=== PATIENT | female | born 1975 | race Caucasian/White ===

== ENCOUNTER 2018-12-17 07:09 | Inpatient (IN) | payer BC ==
[2018-12-17] MEDS ORDERED: Propofol 200 MG/20 ML SDV ONE ×2 (08:36→10:03)
[2018-12-17] MEDS ORDERED: Midazolam 1 MG/ML 2 ML SDV ONE (08:36)
[2018-12-17] MEDS ORDERED: fentaNYL 100 MCG/2 ML SDV ONE (08:36)
[2018-12-17] MEDS ORDERED: MVI, Adult with Vitamin K 10 ML, Thiamine 200 MG, Chromium/Copper/Mang/Selen/Zn 1 ML in... IV ONE ×4 (08:45)
[2018-12-17] MEDS ORDERED: Glycopyrrolate 0.2 MG/ML 2 ML SDV IVPUSH ONE (09:00)
[2018-12-17] MEDS ORDERED: Dextrose 5%-Lactated Ringers 1,000 ML IV SCH ×2 (10:15→14:00)
[2018-12-17] MEDS ORDERED: Zolpidem 5 MG Tab PO PRN (11:22)
[2018-12-17] MEDS ORDERED: SUMAtriptan 50 MG Tab PO PRN (12:18)
[2018-12-17] MEDS ORDERED: Gabapentin 300 MG Cap PO PRN (12:56)
[2018-12-17] MEDS ORDERED: Gabapentin 300 MG Cap PO SCH (14:00)
[2018-12-17] MEDS: Levothyroxine 100 MCG Tab PO SCH (15:02)
[2018-12-17] MEDS: 1: AA 5%/Calcium/D15W/Lytes 1,000 ML with MVI, Adult with Vitamin K 10 ML, Chromium/Copp IV SCH ×3 (15:02)
[2018-12-17] MEDS: Verapamil 80 MG Tab PO SCH ×2 (15:02→21:59)
[2018-12-17] MEDS ORDERED: Pantoprazole 40 MG Tab.CR PO ONE (16:00)
[2018-12-17] MEDS ORDERED: Zonisamide 100 MG Cap PO SCH (21:00)
[2018-12-17] MEDS ORDERED: Zonisamide 50 MG Capsule PO SCH (21:00)
[2018-12-18] MEDS: 1: AA 5%/Calcium/D15W/Lytes 1,000 ML with MVI, Adult with Vitamin K 10 ML, Chromium/Copp IV SCH ×6 (05:39→16:18)
[2018-12-18] MEDS ORDERED: Celecoxib 200 MG Cap PO ONE (06:30)
[2018-12-18] MEDS ORDERED: Verapamil 80 MG Tab PO ONE (06:30)
[2018-12-18] MEDS ORDERED: Acetaminophen 500 MG Tab PO ONE (06:30)
[2018-12-18] MEDS ORDERED: Gabapentin 300 MG Cap PO ONE (06:30)
[2018-12-18] MEDS ORDERED: fentaNYL 250 MCG/5 ML SDV ONE ×3 (07:53→12:33)
[2018-12-18] MEDS ORDERED: Dexamethasone 4 MG/ML SDV ONE (07:54)
[2018-12-18] MEDS ORDERED: Glycopyrrolate 0.2 MG/ML 5 ML MDV ONE (07:54)
[2018-12-18] MEDS ORDERED: Rocuronium 50 MG/5 ML Vial ONE (07:54)
[2018-12-18] MEDS ORDERED: Ondansetron 4 MG/2 ML SDV ONE (07:54)
[2018-12-18] MEDS ORDERED: Succinylcholine 200 MG/10 ML MDV ONE (07:54)
[2018-12-18] MEDS ORDERED: Neostigmine Methylsulfate 1 MG/ML 5 ML Syringe ONE (07:54)
[2018-12-18] MEDS ORDERED: Propofol 200 MG/20 ML SDV ONE (07:54)
[2018-12-18] MEDS ORDERED: Ropivacaine 38 ML, dexAMETHasone 8 MG, EPINEPHrine 0.4 MG, Sodium Chloride 0.9% 39.6 ML NERVRT SCH ×4 (08:30)
[2018-12-18] MEDS ORDERED: Lidocaine 2% 100 MG/5 ML Syringe IVPUSH SCH (08:45)
[2018-12-18] MEDS ORDERED: Ketamine 500 MG/5 ML MDV IV SCH (08:45)
[2018-12-18] MEDS ORDERED: Ketamine 50 MG in Sodium Chloride 0.9% 49.5 ML IV SCH (08:45)
--- NOTE | 2018-12-18 09:34 | PCM.PN ---
- General Info Date of Service: 12/18/18 Admission Dx/Problem (Free Text): Elaine Wheeler is a 43 year old female who was admitted on 12/18/2018 after the upper gastrointestinal endoscopy and triple lumen subclavian catheter insertion. 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 She states that her pain is controlled and she is ready for her procedure today. Functional Status: Reports: Pain Controlled - Review of Systems General: Reports: No Symptoms HEENT: Reports: No Symptoms Pulmonary: Reports: No Symptoms Cardiovascular: Reports: No Symptoms Genitourinary: Reports: No Symptoms Musculoskeletal: Reports: No Symptoms Skin: Reports: No Symptoms Neurological: Reports: No Symptoms Psychiatric: Reports: No Symptoms - Patient Data Vitals - Most Recent: Last Vital Signs Temp 36.2 C 12/18/18 07:37 Pulse 92 12/18/18 07:37 Resp 16 12/18/18 07:37 BP 128/74 12/18/18 07:37 Pulse Ox 100 12/18/18 07:37 Weight - Most Recent: 86.636 kg I&O - Last 24 Hours: Intake & Output 12/17/18 12/18/18 12/18/18 22:59 06:59 14:59 Intake Total 1342 1238 Output Total 1375 500 900 Balance -33 738 -900 Lab Results Last 24 Hours: Laboratory Results - last 24 hr 12/17/18 12/17/18 Range/Units 12:21 12:21 TSH, Ultra Sensitive 0.939 (0.358-3.740) uIU/mL Blood Type A POSITIVE Gel Antibody Screen Negative Med Orders - Current: Current Medications Ropivacaine 38 ml/Dexamethasone 8 mg/Epinephrine HCl 0.4 mg/ Sodium Chloride 39.6 ml 0 ml NERVRT ASDIRECTED [facility] Gabapentin (Neurontin) 300 mg PO TID PRN PRN Reason: HEADACHE Dextrose/Lactated Ringer's (Dextrose 5%-Lactated Ringers) 1,000 mls @ 25 mls/ hr IV ASDIRECTED [facility] Last Admin: 12/18/18 05:41 Dose: 25 mls/hr Multivitamins/Minerals 10 ml/Chromium/Copper/Manganese/Seleni/Zn 1 ml/ Amino Ac/ Electrol/Dextrose/Calcium 1,011 mls @ 100 mls/hr IV .BY DURATION [facility] Last Admin: 12/17/18 15:02 Dose: 100 mls/hr Amino Ac/Electrol/Dextrose/Calcium (Clinimix E 12/26) 1,000 mls @ 100 mls/hr IV .BY DURATION [facility] Last Admin: 12/18/18 05:39 Dose: 100 mls/hr Lidocaine HCl/Dextrose (Lidocaine 2 Gm/D5w 500 Ml) 2 gm in 500 mls @ 15 mls/hr IV .Q24H [facility] Ketamine HCl 50 mg/ Sodium (Chloride) 50 mls @ 15.72 mls/hr IV ASDIRECTED [facility] Ketamine HCl (Ketalar) 26 mg IV ASDIRECTED [facility] Levothyroxine Sodium (Synthroid) 100 mcg PO ACBREAKFAST [facility] Last Admin: 12/17/18 15:02 Dose: 100 mcg Lidocaine HCl (Xylocaine 2%) 100 mg IVPUSH ASDIRECTED [facility] Verify Scop Patch 0 each TOP DAILY [facility] Pneumococcal Polyvalent Vaccine (Pneumovax 23) 0.5 ml IM .ONCE ONE Stop: 12/20/18 14:01 Scopolamine (Transderm-Scop) 1.5 mg TRDERM Q72H [facility] Sumatriptan Succinate (Imitrex) 50 mg PO ASDIRECTED PRN PRN Reason: HEADACHE Zolpidem Tartrate (Ambien) 10 mg PO BEDTIME PRN PRN Reason: SLEEP Last Admin: 12/17/18 22:00 Dose: 10 mg Zonisamide (Zonisamide) 200 mg PO BEDTIME [facility] Discontinued Medications Acetaminophen (Tylenol Extra Strength) 1,000 mg PO ONETIME ONE Stop: 12/18/18 06:31 Last Admin: 12/18/18 05:39 Dose: 1,000 mg Bupropion HCl (Wellbutrin) 150 mg PO BID [facility] Stop: 12/17/18 21:01 Last Admin: 12/17/18 21:59 Dose: 150 mg Bupropion HCl (Wellbutrin) 150 mg PO ONETIME ONE Stop: 12/18/18 06:31 Last Admin: 12/18/18 05:39 Dose: 150 mg Celecoxib (Celebrex) 200 mg PO ONETIME ONE Stop: 12/18/18 06:31 Last Admin: 12/18/18 05:39 Dose: 200 mg Dexamethasone (Dexamethasone) Confirm Administered Dose 4 mg .ROUTE .STK-MED ONE Stop: 12/18/18 07:55 Fentanyl (Sublimaze) Confirm Administered Dose 100 mcg .ROUTE .ST-MED ONE Stop: 12/17/18 08:37 Fentanyl (Sublimaze) Confirm Administered Dose 250 mcg .ROUTE .ST-MED ONE Stop: 12/18/18 07:54 Gabapentin (Neurontin) 300 mg PO ONETIME ONE Stop: 12/18/18 06:31 Last Admin: 12/18/18 05:39 Dose: 300 mg Glycopyrrolate (Glycopyrrolate) 0.4 mg IVPUSH ONETIME ONE Stop: 12/17/18 09:01 Last Admin: 12/17/18 09:45 Dose: 0.4 mg Glycopyrrolate (Robinul) Confirm Administered Dose 1 mg .ROUTE .ST-MED ONE Stop: 12/18/18 07:55 Heparin Sodium (Porcine) (Heparin Lock Flush 100 Units/Ml) Confirm Administered Dose 500 units .ROUTE .ST-MED ONE Stop: 12/17/18 06:55 Last Admin: 12/17/18 10:08 Dose: 500 units Multivitamins/Minerals 10 ml/Thiamine HCl 200 mg/ Chromium/Copper/Manganese/ Seleni/Zn 1 ml/ Lactated Ringer's 1,013 mls @ 500 mls/hr IV ONETIME ONE Stop: 12/17/18 10:46 Last Admin: 12/17/18 08:19 Dose: 500 mls/hr Dextrose/Lactated Ringer's (Dextrose 5%-Lactated Ringers) 1,000 mls @ 100 mls/ hr IV ASDIRECTED [facility] Stop: 12/17/18 13:55 Midazolam HCl (Versed 1 Mg/Ml) Confirm Administered Dose 2 mg .ROUTE .STK-MED ONE Stop: 12/17/18 08:37 Neostigmine Methylsulfate (Neostigmine) Confirm Administered Dose 5 mg .ROUTE .ST-MED ONE Stop: 12/18/18 07:55 Ondansetron HCl (Zofran) Confirm Administered Dose 4 mg .ROUTE .ST-MED ONE Stop: 12/18/18 07:55 Pantoprazole Sodium (Protonix) 40 mg PO ONETIME ONE Stop: 12/17/18 16:01 Last Admin: 12/17/18 15:02 Dose: 40 mg Propofol (Diprivan 20 Ml) Confirm Administered Dose 200 mg .ROUTE .STK-MED ONE Stop: 12/17/18 08:37 Propofol (Diprivan 20 Ml) Confirm Administered Dose 200 mg .ROUTE .STK-MED ONE Stop: 12/17/18 10:04 Propofol (Diprivan 20 Ml) Confirm Administered Dose 200 mg .ROUTE .STK-MED ONE Stop: 12/18/18 07:55 Rocuronium [place] (Zemuron) Confirm Administered Dose 50 mg .ROUTE .STK-MED ONE Stop: 12/18/18 07:55 Succinylcholine Chloride (Quelicin) Confirm Administered Dose 200 mg .ROUTE .STK -MED ONE Stop: 12/18/18 07:55 Verapamil HCl (Calan) 80 mg PO TID [facility] Stop: 12/17/18 21:01 Last Admin: 12/17/18 21:59 Dose: 80 mg Verapamil HCl (Calan) 80 mg PO ONETIME ONE Stop: 12/18/18 06:31 Last Admin: 12/18/18 05:40 Dose: 80 mg Zonisamide (Zonisamide) 200 mg PO BEDTIME [facility] Zonisamide (Zonegran) 200 mg PO BEDTIME [facility] Stop: 12/17/18 21:01 Last Admin: 12/17/18 22:00 Dose: 200 mg - Exam General: Alert, Oriented Neck: Supple Lungs: Clear to Auscultation, Normal Respiratory Effort Cardiovascular: Regular Rate, Regular Rhythm GI/Abdominal Exam: No Distention Extremities: Normal Inspection Skin: Warm, Intact Psy/Mental Status: Alert, Normal Affect - Problem List Review Problem List Initiated/Reviewed/Updated: Yes - Assessment Assessment:: 12/17/2018, Surgeon Davey Amato MD I. Upper Gastrointestinal Endoscopy for: II. 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 Add to intraoperative management a. Administer Ketamine bolus infusion b. Administer Lidocaine 1 mg per minute and continue post operative
[2018-12-18] MEDS: Levothyroxine 100 MCG Tab PO SCH (09:39)
[2018-12-18] MEDS: Scopolamine 1.5 MG Transdermal Patch TRDERM SCH (09:40)
[2018-12-18] MEDS ORDERED: Meropenem 500 MG SDV ONE (10:22)
[2018-12-18] MEDS ORDERED: Naloxone 0.4 MG/ML SDV IVPUSH PRN (10:55)
[2018-12-18] MEDS: HYDROmorphone/Normal Saline 15 MG/30 ML PCA IV PRN (11:10)
[2018-12-18] MEDS ORDERED: Labetalol 20 MG/4 ML Syringe ONE (11:38)
[2018-12-18] MEDS ORDERED: Lactated Ringers 1,000 ML ONE (12:02)
[2018-12-18] MEDS ORDERED: hydrOXYzine HCl 100 MG/2 ML SDV IM ONE (14:15)
[2018-12-18] MEDS ORDERED: Labetalol 20 MG/4 ML Syringe IVPUSH PRN (15:24)
[2018-12-18] MEDS ORDERED: Metoclopramide 10 MG/2 ML SDV IVPUSH PRN (15:24)
[2018-12-18] MEDS ORDERED: hydrOXYzine HCl 100 MG/2 ML SDV IM PRN (15:24)
[2018-12-18] MEDS ORDERED: Ondansetron 4 MG/2 ML SDV IVPUSH PRN (15:24)
[2018-12-18] MEDS ORDERED: diphenhydrAMINE 50 MG/ML SDV IVPUSH PRN (15:24)
[2018-12-18] MEDS: Lidocaine 0.4%/D5W 2 GM/500 ML BAG IV SCH (15:29)
[2018-12-18] MEDS: Dextrose 5%-Lactated Ringers 1,000 ML IV SCH (15:30)
[2018-12-18] MEDS ORDERED: Pantoprazole 40 MG Vial IVPUSH SCH (16:00)
[2018-12-18] MEDS: Acetaminophen Soln 650 MG/20.3 ML UD Cup PO SCH ×2 (16:39→22:34)
[2018-12-18] MEDS: cefOXitin 2 GM in Sodium Chloride 0.9% 50 ML IV SCH ×2 (16:39→22:34)
[2018-12-18] MEDS: VERIFY SCOP PATCH TOP SCH (17:56)
[2018-12-18] MEDS: Heparin Sodium 5,000 Units/ML Vial SUBCUT SCH (20:30)
[2018-12-18] MEDS: Gabapentin 250 MG/5 ML Solution ML 470 ML Bottle PO SCH (20:33)
[2018-12-18] MEDS ORDERED: Zonisamide 50 MG Capsule PO SCH (21:00)
[2018-12-19] MEDS: 1: AA 5%/Calcium/D15W/Lytes 1,000 ML with MVI, Adult with Vitamin K 10 ML, Chromium/Copp IV SCH ×9 (02:20→22:31)
[2018-12-19] MEDS ORDERED: Iohexol 647 MG/ML 50 ML SDV PO SCH (03:45)
[2018-12-19] MEDS: cefOXitin 2 GM in Sodium Chloride 0.9% 50 ML IV SCH ×4 (04:26→21:35)
[2018-12-19] MEDS: Acetaminophen Soln 650 MG/20.3 ML UD Cup PO SCH ×4 (04:26→22:16)
[2018-12-19] MEDS: Dextrose 5%-Lactated Ringers 1,000 ML IV SCH (05:41)
[2018-12-19] MEDS ORDERED: Dextrose 5%-Lactated Ringers 1,000 ML IV SCH (07:45)
[2018-12-19] MEDS ORDERED: Ondansetron 4 MG Tab.DIS PO PRN (07:45)
--- NOTE | 2018-12-19 07:58 | PCM.SURGPN ---
- General Info Date of Service: 12/19/18 POD#: 1 Functional Status: Reports: Pain Controlled - Review of Systems General: Reports: No Symptoms HEENT: Reports: No Symptoms Pulmonary: Reports: No Symptoms Cardiovascular: Reports: No Symptoms Gastrointestinal: Reports: Abdominal Pain Genitourinary: Reports: No Symptoms Musculoskeletal: Reports: No Symptoms Skin: Reports: No Symptoms Neurological: Reports: No Symptoms Psychiatric: Reports: No Symptoms Systems Review Comment:: Elaine Wheeler is a 43 year old female who was admitted on 12/18/2018 after the upper gastrointestinal endoscopy and triple lumen subclavian catheter insertion. On 12/18/2018 she underwent a resection of the portion of strictured small bowel. She states that her pain is relatively controlled. She does not have any current symptomatic concerns. Total intake was 3005 mL, total output was 4230 mL. Total intake orally was 300 mL and intake through IV was 2705 mL. The REINA flat drain produced 40 mL and the REINA round drain produced 30 mL. Vital signs are stable. Upper gastrointestinal x-ray showed good flow contrast into small bowel with no evidence of leak. - Patient Data Vitals - Most Recent: Last Vital Signs Temp 36.4 C 12/19/18 07:28 Pulse 95 12/19/18 07:28 Resp 18 12/19/18 07:28 BP 127/84 12/19/18 07:28 Pulse Ox 96 12/19/18 07:28 Weight - Most Recent: 86.636 kg I&O - Last 24 Hours: Intake & Output 12/18/18 12/19/18 12/19/18 22:59 06:59 14:59 Intake Total 513 2492 Output Total 900 1230 Balance -387 1262 Lab Results Last 24 Hrs: Laboratory Results - last 24 hr 12/19/18 12/19/18 Range/Units 04:30 04:30 WBC 12.0 H (4.5-11.0) K/uL RBC 4.31 (3.30-5.50) M/uL Hgb 13.1 (12.0-15.0) g/dL Hct 38.6 (36.0-48.0) % MCV 90 (80-98) fL MCH 30 (27-31) pg MCHC 34 (32-36) % Plt Count 164 (150-400) K/uL Neut % (Auto) 89 H (36-66) % Lymph % (Auto) 4 L (24-44) % Emmet % (Auto) 7 H (2-6) % Eos % (Auto) 0 L (2-4) % Baso % (Auto) 0 (0-1) % Sodium 143 (140-148) mmol/L Potassium 4.2 (3.6-5.2) mmol/L Chloride 109 H (100-108) mmol/L Carbon Dioxide 25 (21-32) mmol/L Anion Gap 13.2 (5.0-14.0) mmol/L BUN 14 (7-18) mg/dL Creatinine 0.8 (0.6-1.0) mg/dL Est Cr Clr Drug Dosing 75.75 mL/min Estimated GFR (MDRD) > 60 (>60) Glucose 154 H (74-106) mg/dL Calcium 8.6 (8.5-10.1) mg/dL Phosphorus 2.6 (2.5-4.9) mg/dL Magnesium 1.9 (1.8-2.4) mg/dL Total Bilirubin 0.8 (0.2-1.0) mg/dL AST 42 H (15-37) U/L ALT 44 (12-78) U/L Alkaline Phosphatase 65 (46-116) U/L Total Protein 6.1 L (6.4-8.2) g/dL Albumin 2.9 L (3.4-5.0) g/dL Globulin 3.2 (2.3-3.5) g/dL Albumin/Globulin Ratio 0.9 L (1.2-2.2) Med Orders - Current: Current Medications Acetaminophen (Tylenol) 650 mg PO Q6H [facility] Last Admin: 12/19/18 04:26 Dose: 650 mg Celecoxib (Celebrex) 200 mg PO DAILY@0800 [facility] Cyanocobalamin (Vitamin B12) 1,000 mcg IM ONETIME ONE Stop: 12/20/18 09:01 Diphenhydramine HCl (Benadryl) 50 mg IVPUSH Q4H PRN PRN Reason: ITCHING Gabapentin (Neurontin) 300 mg PO TID [facility] Last Admin: 12/18/18 20:33 Dose: 300 mg Heparin Sodium (Porcine) (Heparin Sodium) 5,000 units SUBCUT Q12H [facility] Last Admin: 12/18/18 20:30 Dose: 5,000 units Hydromorphone HCl (Dilaudid [employer] 15 Mg In Ns 30 Ml) 0 mg IV ASDIRECTED PRN; Protocol PRN Reason: Pain Last Admin: 12/18/18 11:10 Dose: 0.3 mg Hydroxyzine HCl (Vistaril) 100 mg IM Q4H PRN PRN Reason: pain Last Admin: 12/19/18 02:49 Dose: 100 mg Lidocaine HCl/Dextrose (Lidocaine 2 Gm/D5w 500 Ml) 2 gm in 500 mls @ 15 mls/hr IV .Q24H [facility] Stop: 12/19/18 18:04 Last Admin: 12/18/18 15:29 Dose: 1 mg/min, 15 mls/hr Multivitamins/Minerals 10 ml/Chromium/Copper/Manganese/Seleni/Zn 1 ml/ Amino Ac/ Electrol/Dextrose/Calcium 1,011 mls @ 100 mls/hr IV .BY DURATION [facility] Last Admin: 12/18/18 16:18 Dose: 100 mls/hr Amino Ac/Electrol/Dextrose/Calcium (Clinimix E 5/15) 1,000 mls @ 100 mls/hr IV .BY DURATION [facility] Last Admin: 12/19/18 02:20 Dose: 100 mls/hr Dextrose/Lactated Ringer's (Dextrose 5%-Lactated Ringers) 1,000 mls @ 80 mls/ hr IV ASDIRECTED [facility] Last Admin: 12/19/18 05:41 Dose: 80 mls/hr Cefoxitin Sodium 2 gm/ Sodium (Chloride) 50 mls @ 100 mls/hr IV Q6H [facility] Stop: 12/20/18 10:29 Last Admin: 12/19/18 04:26 Dose: 100 mls/hr Labetalol HCl (Normodyne) 5 mg IVPUSH Q5M PRN PRN Reason: SBP over 160 OR DBP over 95 Metoclopramide HCl (Reglan) 10 mg IVPUSH Q6H PRN PRN Reason: NAUSEA NOT CONTROL BY ZOFRAN Miscellaneous Information (Remove Patch) 1 ea TRDERM ONETIME ONE Stop: 12/20/18 10:01 Naloxone HCl (Narcan) 0.1 mg IVPUSH Q2M PRN PRN Reason: Respiratory Distress Verify Scop Patch 0 each TOP DAILY [facility] Last Admin: 12/18/18 17:56 Dose: Not Given Ondansetron HCl (Zofran) 4 mg IVPUSH Q4H PRN PRN Reason: Nausea/Vomiting Pantoprazole Sodium (Protonix Iv) 40 mg IVPUSH Q24H [facility] Last Admin: 12/18/18 16:39 Dose: 40 mg Pneumococcal Polyvalent Vaccine (Pneumovax 23) 0.5 ml IM .ONCE ONE Stop: 12/20/18 14:01 Scopolamine (Transderm-Scop) 1.5 mg TRDERM Q72H [facility] Last Admin: 12/18/18 09:40 Dose: 1.5 mg Discontinued Medications Acetaminophen (Tylenol Extra Strength) 1,000 mg PO ONETIME ONE Stop: 12/18/18 06:31 Last Admin: 12/18/18 05:39 Dose: 1,000 mg Bupropion HCl (Wellbutrin) 150 mg PO BID [facility] Stop: 12/17/18 21:01 Last Admin: 12/17/18 21:59 Dose: 150 mg Bupropion HCl (Wellbutrin) 150 mg PO ONETIME ONE Stop: 12/18/18 06:31 Last Admin: 12/18/18 05:39 Dose: 150 mg Celecoxib (Celebrex) 200 mg PO ONETIME ONE Stop: 12/18/18 06:31 Last Admin: 12/18/18 05:39 Dose: 200 mg Ropivacaine 38 ml/Dexamethasone 8 mg/Epinephrine HCl 0.4 mg/ Sodium Chloride 39.6 ml 0 ml NERVRT ASDIRECTED [facility] Last Admin: 12/18/18 11:10 Dose: 80 syringe Dexamethasone (Dexamethasone) Confirm Administered Dose 4 mg .ROUTE .STK-MED ONE Stop: 12/18/18 07:55 Fentanyl (Sublimaze) Confirm Administered Dose 100 mcg .ROUTE .STK-MED ONE Stop: 12/17/18 08:37 Fentanyl (Sublimaze) Confirm Administered Dose 250 mcg .ROUTE .STK-MED ONE Stop: 12/18/18 07:54 Fentanyl (Sublimaze) Confirm Administered Dose 250 mcg .ROUTE .STK-MED ONE Stop: 12/18/18 11:23 Fentanyl (Sublimaze) Confirm Administered Dose 250 mcg .ROUTE .STK-MED ONE Stop: 12/18/18 12:34 Gabapentin (Neurontin) 300 mg PO TID PRN PRN Reason: HEADACHE Gabapentin (Neurontin) 300 mg PO ONETIME ONE Stop: 12/18/18 06:31 Last Admin: 12/18/18 05:39 Dose: 300 mg Glycopyrrolate (Glycopyrrolate) 0.4 mg IVPUSH ONETIME ONE Stop: 12/17/18 09:01 Last Admin: 12/17/18 09:45 Dose: 0.4 mg Glycopyrrolate (Robinul) Confirm Administered Dose 1 mg .ROUTE .STK-MED ONE Stop: 12/18/18 07:55 Heparin Sodium (Porcine) (Heparin Lock Flush 100 Units/Ml) Confirm Administered Dose 500 units .ROUTE .STK-MED ONE Stop: 12/17/18 06:55 Last Admin: 12/17/18 10:08 Dose: 500 units Hydroxyzine HCl (Vistaril) 75 mg IM ONETIME ONE Stop: 12/18/18 14:16 Last Admin: 12/18/18 14:22 Dose: 75 mg Multivitamins/Minerals 10 ml/Thiamine HCl 200 mg/ Chromium/Copper/Manganese/ Seleni/Zn 1 ml/ Lactated Ringer's 1,013 mls @ 500 mls/hr IV ONETIME ONE Stop: 12/17/18 10:46 Last Admin: 12/17/18 08:19 Dose: 500 mls/hr Dextrose/Lactated Ringer's (Dextrose 5%-Lactated Ringers) 1,000 mls @ 100 mls/ hr IV ASDIRECTED [facility] Stop: 12/17/18 13:55 Dextrose/Lactated Ringer's (Dextrose 5%-Lactated Ringers) 1,000 mls @ 25 mls/ hr IV ASDIRECTED [facility] Last Admin: 12/18/18 05:41 Dose: 25 mls/hr Multivitamins/Minerals 10 ml/Chromium/Copper/Manganese/Seleni/Zn 1 ml/ Amino Ac/ Electrol/Dextrose/Calcium 1,011 mls @ 100 mls/hr IV .BY DURATION [facility] Last Admin: 12/17/18 15:02 Dose: 100 mls/hr Amino Ac/Electrol/Dextrose/Calcium (Clinimix E /15) 1,000 mls @ 100 mls/hr IV .BY DURATION [facility] Last Admin: 12/18/18 05:39 Dose: 100 mls/hr Ketamine HCl 50 mg/ Sodium (Chloride) 50 mls @ 15.72 mls/hr IV ASDIRECTED [facility] Linezolid (Zyvox) Confirm Administered Dose 300 mls @ as directed .ROUTE .STK- MED ONE Stop: 12/18/18 10:23 Lactated Ringer's (Ringers, Lactated) Confirm Administered Dose 1,000 mls @ as directed .ROUTE .STK-MED ONE Stop: 12/18/18 12:03 Iohexol (Omnipaque-300) 50 ml PO .ASDIRECTED [facility] Last Admin: 12/19/18 05:07 Dose: 50 ml Ketamine HCl (Ketalar) 26 mg IV ASDIRECTED [facility] Labetalol HCl (Normodyne) Confirm Administered Dose 20 mg .ROUTE .STK-MED ONE Stop: 12/18/18 11:39 Levothyroxine Sodium (Synthroid) 100 mcg PO ACBREAKFAST [facility] Last Admin: 12/18/18 09:39 Dose: Not Given Lidocaine HCl (Xylocaine 2%) 100 mg IVPUSH ASDIRECTED [facility] Meropenem (Merrem) Confirm Administered Dose 500 mg .ROUTE .STK-MED ONE Stop: 12/18/18 10:23 Last Admin: 12/18/18 11:16 Dose: 500 mg Midazolam HCl (Versed 1 Mg/Ml) Confirm Administered Dose 2 mg .ROUTE .STK-MED ONE Stop: 12/17/18 08:37 Neostigmine Methylsulfate (Neostigmine) Confirm Administered Dose 5 mg .ROUTE .STK-MED ONE Stop: 12/18/18 07:55 Ondansetron HCl (Zofran) Confirm Administered Dose 4 mg .ROUTE .STK-MED ONE Stop: 12/18/18 07:55 Pantoprazole Sodium (Protonix) 40 mg PO ONETIME ONE Stop: 12/17/18 16:01 Last Admin: 12/17/18 15:02 Dose: 40 mg Pharmacy Consult (Consult To Pharmacy) 1 each .XX ASDIRECTED [facility] Stop: 12/18/18 15:31 Propofol (Diprivan 20 Ml) Confirm Administered Dose 200 mg .ROUTE .STK-MED ONE Stop: 12/17/18 08:37 Propofol (Diprivan 20 Ml) Confirm Administered Dose 200 mg .ROUTE .STK-MED ONE Stop: 12/17/18 10:04 Propofol (Diprivan 20 Ml) Confirm Administered Dose 200 mg .ROUTE .STK-MED ONE Stop: 12/18/18 07:55 Rocuronium Deweese (Zemuron) Confirm Administered Dose 50 mg .ROUTE .STK-MED ONE Stop: 12/18/18 07:55 Succinylcholine Chloride (Quelicin) Confirm Administered Dose 200 mg .ROUTE .STK -MED ONE Stop: 12/18/18 07:55 Sumatriptan Succinate (Imitrex) 50 mg PO ASDIRECTED PRN PRN Reason: HEADACHE Verapamil HCl (Calan) 80 mg PO TID [facility] Stop: 12/17/18 21:01 Last Admin: 12/17/18 21:59 Dose: 80 mg Verapamil HCl (Calan) 80 mg PO ONETIME ONE Stop: 12/18/18 06:31 Last Admin: 12/18/18 05:40 Dose: 80 mg Zolpidem Tartrate (Ambien) 10 mg PO BEDTIME PRN PRN Reason: SLEEP Last Admin: 12/17/18 22:00 Dose: 10 mg Zonisamide (Zonisamide) 200 mg PO BEDTIME [facility] Zonisamide (Zonisamide) 200 mg PO BEDTIME [facility] Zonisamide (Zonegran) 200 mg PO BEDTIME [facility] Stop: 12/17/18 21:01 Last Admin: 12/17/18 22:00 Dose: 200 mg - Exam Wound/Incisions: Dressing Dry and Intact General: Alert, Oriented Lungs: Clear to Auscultation, Normal Respiratory Effort Cardiovascular: Regular Rate, Regular Rhythm GI/Abdominal Exam: No Distention Extremities: Normal Inspection Skin: Warm Neurological: No New Focal Deficit Psy/Mental Status: Alert, Normal Affect - Problem List Review Problem List Initiated/Reviewed/Updated: Yes - My Orders Last 24 Hours: Active Orders 24 hr Category Date Time Status Patient Status [ADT] Routine ADT 12/18/18 13:30 Active Ambulate [RC] ASDIRECTED Care 12/18/18 15:23 Active Cardiac Monitoring Discontinue [RC] Click to Edit Care 12/19/18 09:00 Active Cardiac Monitoring [RC] .As Directed Care 12/18/18 15:23 Active Communication Order [RC] ASDIRECTED Care 12/20/18 04:00 Active Communication Order [RC] ROUTINE Care 12/18/18 15:23 Active Communication Order [RC] STAT Care 12/18/18 10:55 Active Dorsiflex/Plantar flex x 10 [RC] QSHIFT Care 12/18/18 15:23 Active Drain Management [RC] ASDIRECTED Care 12/18/18 15:23 Active Insert Urinary Catheter [OM.PC] Per Unit Routine Care 12/18/18 15:23 Ordered Notify Provider Intake and Out [RC] ASDIRECTED Care 12/18/18 15:23 Active Notify Provider [RC] PRN Care 12/18/18 10:55 Active Notify Provider [RC] PRN Care 12/18/18 15:23 Active Oxygen Therapy [RC] ASDIRECTED Care 12/18/18 15:23 Active FORESTRY PATROLMAN Record [RC] PER UNIT ROUTINE Care 12/18/18 10:55 Active Pneumonia Education [RC] UPON Care 12/18/18 15:23 Active Pulse Oximetry [RC] CONTINUOUS Care 12/18/18 10:55 Active Up to Chair [RC] TIDMEALS Care 12/18/18 15:23 Active Urinary Catheter Assessment [RC] ASDIRECTED Care 12/18/18 15:24 Active Vital Signs [RC] Q1HR Care 12/18/18 15:23 Active Consult to Bariatric Services [CONS] Routine Cons 12/18/18 15:23 Active Consult to Java Sql Developer [CONS] Routine Cons 12/18/18 15:23 Active Respiratory Care Assess and Treatment [CONS] Routine Cons 12/18/18 15:23 Active Bariatric Diet [DIET] Diet 12/18/18 Dinner Active UGI wo KUB [CR] Timed Exams 12/19/18 04:00 Taken ALT Order Med 12/18/18 15:30 Active Acetaminophen [Tylenol] Med 12/18/18 17:00 Active 650 mg PO Q6H Celecoxib [CeleBREX] Med 12/19/18 08:00 Active 200 mg PO DAILY@0800 Cyanocobalamin (Vitamin B12) [Vitamin B12] Med 12/20/18 09:00 Once 1,000 mcg IM ONETIME ONE Dextrose 5%-Lactated Ringers 1,000 ml Med 12/18/18 15:15 Active IV ASDIRECTED Gabapentin [Neurontin] Med 12/18/18 21:00 Active 300 mg PO TID HYDROmorphone/Normal Saline [Dilaudid FORESTRY PATROLMAN 15 MG in NS Med 12/18/18 10:55 Active 30 ML] See Protocol IV ASDIRECTED PRN Heparin Sodium Med 12/18/18 20:00 Active 5,000 units SUBCUT Q12H Labetalol [Normodyne] Med 12/18/18 15:24 Active 5 mg IVPUSH Q5M PRN Lidocaine 0.4%/D5W [Lidocaine 2 GM/D5W 500 ML] Med 12/18/18 08:45 Active 2 gm in 500 ml IV 1 mg/min Metoclopramide [Reglan] Med 12/18/18 15:24 Active 10 mg IVPUSH Q6H PRN Naloxone [Narcan] Med 12/18/18 10:55 Active 0.1 mg IVPUSH Q2M PRN Non-Formulary Medication [NF Drug] Med 12/18/18 13:00 Active 0 each TOP DAILY Ondansetron [Zofran] Med 12/18/18 15:24 Active 4 mg IVPUSH Q4H PRN Pantoprazole [ProTONIX IV] Med 12/18/18 16:00 Active 40 mg IVPUSH Q24H Pneumococcal Polyvalent-23 Vac [Pneumovax 23] Med 12/20/18 14:00 Once 0.5 ml IM .ONCE ONE Remove Patch Med 12/20/18 10:00 Once 1 ea TRDERM ONETIME ONE Scopolamine [Transderm-Scop] Med 12/18/18 09:00 Active 1.5 mg TRDERM Q72H cefOXitin [Mefoxin] 2 gm Med 12/18/18 16:00 Active Sodium Chloride 0.9% [Normal Saline] 50 ml IV Q6H diphenhydrAMINE [Benadryl] Med 12/18/18 15:24 Active 50 mg IVPUSH Q4H PRN hydrOXYzine HCl [Vistaril] Med 12/18/18 15:24 Active 100 mg IM Q4H PRN Abdominal Binder [OM.PC] Routine Oth 12/18/18 15:23 Ordered Medication Discontinuation Instructions [OM.PC] Stat Oth 12/18/18 10:55 Ordered Oral Care [OM.PC] BID Oth 12/18/18 12:00 Ordered PT Screening [OM.PC] Routine Oth 12/18/18 15:23 Active Specialty Bed [OM.PC] Routine Oth 12/18/18 15:23 Ordered Resuscitation Status Routine Resus Stat 12/18/18 15:22 Ordered Medication Orders Acetaminophen (Tylenol) 650 mg PO Q6H [facility] Last Admin: 12/19/18 04:26 Dose: 650 mg Admin: 12/18/18 22:34 Dose: 650 mg Admin: 12/18/18 16:39 Dose: 650 mg Celecoxib (Celebrex) 200 mg PO DAILY@0800 [facility] Cyanocobalamin (Vitamin B12) 1,000 mcg IM ONETIME ONE Stop: 12/20/18 09:01 Diphenhydramine HCl (Benadryl) 50 mg IVPUSH Q4H PRN PRN Reason: ITCHING Gabapentin (Neurontin) 300 mg PO TID [facility] Last Admin: 12/18/18 20:33 Dose: 300 mg Heparin Sodium (Porcine) (Heparin Sodium) 5,000 units SUBCUT Q12H [facility] Last Admin: 12/18/18 20:30 Dose: 5,000 units Hydromorphone HCl (Dilaudid [employer]elift 15 Mg In Ns 30 Ml) 0 mg IV ASDIRECTED PRN; Protocol PRN Reason: Pain Last Admin: 12/18/18 11:10 Dose: 0.3 mg Hydroxyzine HCl (Vistaril) 100 mg IM Q4H PRN PRN Reason: pain Last Admin: 12/19/18 02:49 Dose: 100 mg Lidocaine HCl/Dextrose (Lidocaine 2 Gm/D5w 500 Ml) 2 gm in 500 mls @ 15 mls/hr IV .Q24H [facility] Stop: 12/19/18 18:04 Last Admin: 12/18/18 15:29 Dose: 1 mg/min, 15 mls/hr Multivitamins/Minerals 10 ml/Chromium/Copper/Manganese/Seleni/Zn 1 ml/ Amino Ac/ Electrol/Dextrose/Calcium 1,011 mls @ 100 mls/hr IV .BY DURATION [facility] Last Admin: 12/18/18 16:18 Dose: 100 mls/hr Amino Ac/Electrol/Dextrose/Calcium (Clinimix E 5/15) 1,000 mls @ 100 mls/hr IV .BY DURATION [facility] Last Admin: 12/19/18 02:20 Dose: 100 mls/hr Dextrose/Lactated Ringer's (Dextrose 5%-Lactated Ringers) 1,000 mls @ 80 mls/ hr IV ASDIRECTED [facility] Last Admin: 12/19/18 05:41 Dose: 80 mls/hr Infusion: 12/19/18 04:00 Dose: 80 mls/hr Admin: 12/18/18 15:30 Dose: 80 mls/hr Cefoxitin Sodium 2 gm/ Sodium (Chloride) 50 mls @ 100 mls/hr IV Q6H [facility] Stop: 12/20/18 10:29 Last Admin: 12/19/18 04:26 Dose: 100 mls/hr Admin: 12/18/18 22:34 Dose: 100 mls/hr Admin: 12/18/18 16:39 Dose: 100 mls/hr Labetalol HCl (Normodyne) 5 mg IVPUSH Q5M PRN PRN Reason: SBP over 160 OR DBP over 95 Metoclopramide HCl (Reglan) 10 mg IVPUSH Q6H PRN PRN Reason: NAUSEA NOT CONTROL BY ZOFRAN Miscellaneous Information (Remove Patch) 1 ea TRDERM ONETIME ONE Stop: 12/20/18 10:01 Naloxone HCl (Narcan) 0.1 mg IVPUSH Q2M PRN PRN Reason: Respiratory Distress Verify Scop Patch 0 each TOP DAILY [facility] Last Admin: 12/18/18 17:56 Dose: Ondansetron HCl (Zofran) 4 mg IVPUSH Q4H PRN PRN Reason: Nausea/Vomiting Pantoprazole Sodium (Protonix Iv) 40 mg IVPUSH Q24H [facility] Last Admin: 12/18/18 16:39 Dose: 40 mg Pneumococcal Polyvalent Vaccine (Pneumovax 23) 0.5 ml IM .ONCE ONE Stop: 12/20/18 14:01 Scopolamine (Transderm-Scop) 1.5 mg TRDERM Q72H [facility] Last Admin: 12/18/18 09:40 Dose: 1.5 mg - Assessment Assessment (Free Text/Narrative):: 12/17/2018, Surgeon Davey Amato MD I. Upper Gastrointestinal Endoscopy for: II. 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 Exploratory Laparotomy with a) esophagogastrectomy with Rosina en Y esophagojejunostomy b) small bowel resection, for treatment of fixed stricture of small bowel Rosina limb at the level of the transverse colon and associated marked inflammation of gastric pouch and gastrojejunostomy 1. Malnutrition - Plan Plan (Free Text/Narrative):: 1. Administer the step 2 diet for gastric bypass (no solids) 2. Decrease D5LR to 100cc/hr for maintenance 3. Continue TPN at current rate and content for malnutrition 4. AM labs: CBC, CMP, Mg, Phosphorous 5. Recheck as needed or in AM
[2018-12-19] MEDS ORDERED: Central Total Parenteral Nutrition Bag SCH (08:00)
[2018-12-19] MEDS ORDERED: SUMAtriptan 50 MG Tab PO PRN (08:15)
[2018-12-19] MEDS ORDERED: buPROPion 150 MG Tab.ER PO SCH (09:00)
[2018-12-19] MEDS: Celecoxib 200 MG Cap PO SCH (09:18)
[2018-12-19] MEDS: Heparin Sodium 5,000 Units/ML Vial SUBCUT SCH ×2 (09:18→20:11)
[2018-12-19] MEDS: Levothyroxine 100 MCG Tab PO SCH (09:19)
[2018-12-19] MEDS: Verapamil 80 MG Tab PO SCH ×3 (09:19→20:11)
[2018-12-19] MEDS: Gabapentin 250 MG/5 ML Solution ML 470 ML Bottle PO SCH ×3 (09:19→20:34)
[2018-12-19] MEDS: VERIFY SCOP PATCH TOP SCH (10:24)
[2018-12-19] MEDS: HYDROmorphone/Normal Saline 15 MG/30 ML PCA IV PRN (11:51)
[2018-12-19] MEDS: Lidocaine 0.4%/D5W 2 GM/500 ML BAG IV SCH (15:19)
[2018-12-19] MEDS: Pantoprazole 40 MG Delayed-Release Granules 1 Packet PO SCH (15:58)
[2018-12-19] MEDS ORDERED: Zolpidem 5 MG Tab PO SCH (21:00)
[2018-12-19] MEDS ORDERED: Zonisamide 50 MG Capsule PO SCH (21:00)
[2018-12-19] MEDS ORDERED: Zonisamide 100 MG Cap PO SCH (21:00)
[2018-12-20] MEDS: Acetaminophen Soln 650 MG/20.3 ML UD Cup PO SCH ×4 (04:25→23:05)
[2018-12-20] MEDS: cefOXitin 2 GM in Sodium Chloride 0.9% 50 ML IV SCH ×2 (04:25→10:08)
--- NOTE | 2018-12-20 07:48 | PCM.SURGPN ---
- General Info Date of Service: 12/20/18 POD#: 2 - Review of Systems General: Reports: No Symptoms HEENT: Reports: No Symptoms Pulmonary: Reports: Other (mild cough that started last evening, she is trying to complete spirometry more often) Cardiovascular: Reports: No Symptoms Gastrointestinal: Reports: Abdominal Pain. Denies: Diarrhea, Flatus, Nausea, Vomiting Genitourinary: Reports: No Symptoms Neurological: Reports: No Symptoms Psychiatric: Reports: No Symptoms Systems Review Comment:: Elaine Wheeler is a 43 year old female who was admitted on 12/18/2018 after the upper gastrointestinal endoscopy and triple lumen subclavian catheter insertion. On 12/18/2018 she underwent a resection of the portion of strictured small bowel. She states her pain has significantly increased today. She notes start to cough last evening but she has been using her incentive spirometry more frequently today. Total intake was 4525 mL, total output was 2575 mL. Total intake orally was 1430 mL and intake through IV was 3095 mL. The REINA flat drain produced 65 mL and the REINA round drain produced 10 mL. Vital signs are stable. Last evening she was very drowsy and respiratory rate decrease when she took her pain medication plus Ambien and her Zonisamide. She came back around after receiving Naloxone. She does not have any other concerns at this time. - Patient Data Vitals - Most Recent: Last Vital Signs Temp 37.4 C 12/20/18 04:00 Pulse 97 12/20/18 04:00 Resp 18 12/20/18 04:00 BP 127/77 12/20/18 04:00 Pulse Ox 98 12/20/18 04:00 Weight - Most Recent: 86.636 kg I&O - Last 24 Hours: Intake & Output 12/19/18 12/20/18 12/20/18 22:59 06:59 14:59 Intake Total 480 3040 Output Total 1095 580 Balance -615 2460 Lab Results Last 24 Hrs: Laboratory Results - last 24 hr 12/20/18 12/20/18 Range/Units 04:00 04:00 WBC 8.5 (4.5-11.0) K/uL RBC 4.09 (3.30-5.50) M/uL Hgb 12.2 (12.0-15.0) g/dL Hct 37.9 (36.0-48.0) % MCV 93 (80-98) fL MCH 30 (27-31) pg MCHC 32 (32-36) % Plt Count 134 L (150-400) K/uL Sodium 141 (140-148) mmol/L Potassium 3.9 (3.6-5.2) mmol/L Chloride 106 (100-108) mmol/L Carbon Dioxide 29 (21-32) mmol/L Anion Gap 6.4 (5.0-14.0) mmol/L BUN 18 (7-18) mg/dL Creatinine 1.0 (0.6-1.0) mg/dL Est Cr Clr Drug Dosing 60.60 mL/min Estimated GFR (MDRD) > 60 (>60) Glucose 136 H (74-106) mg/dL Calcium 8.4 L (8.5-10.1) mg/dL Phosphorus 3.1 (2.5-4.9) mg/dL Magnesium 1.8 (1.8-2.4) mg/dL Total Bilirubin 0.8 (0.2-1.0) mg/dL AST 29 (15-37) U/L ALT 33 (12-78) U/L Alkaline Phosphatase 63 (46-116) U/L Total Protein 5.9 L (6.4-8.2) g/dL Albumin 2.7 L (3.4-5.0) g/dL Globulin 3.2 (2.3-3.5) g/dL Albumin/Globulin Ratio 0.8 L (1.2-2.2) Med Orders - Current: Current Medications Acetaminophen (Tylenol) 650 mg PO Q6H [facility] Last Admin: 12/20/18 04:25 Dose: 650 mg Bupropion HCl (Wellbutrin) 150 mg PO BID [facility] Last Admin: 12/19/18 20:11 Dose: 150 mg Celecoxib (Celebrex) 200 mg PO DAILY@0800 [facility] Last Admin: 12/19/18 09:18 Dose: 200 mg Cyanocobalamin (Vitamin B12) 1,000 mcg IM ONETIME ONE Stop: 12/20/18 09:01 Diphenhydramine HCl (Benadryl) 50 mg IVPUSH Q4H PRN PRN Reason: ITCHING Gabapentin (Neurontin) 300 mg PO TID [facility] Last Admin: 12/19/18 20:34 Dose: 300 mg Heparin Sodium (Porcine) (Heparin Sodium) 5,000 units SUBCUT Q12H [facility] Last Admin: 12/19/18 20:11 Dose: 5,000 units Heparin Sodium (Porcine) (Heparin Lock Flush 100 Units/Ml) 500 units FLUSH ASDIRECTED PRN PRN Reason: Keep Vein Open Hydromorphone HCl (Dilaudid [place] 15 Mg In Ns 30 Ml) 0 mg IV ASDIRECTED PRN; Protocol PRN Reason: Pain Last Admin: 12/19/18 11:51 Dose: 15 mg Hydroxyzine HCl (Vistaril) 100 mg IM Q4H PRN PRN Reason: pain Last Admin: 12/19/18 02:49 Dose: 100 mg Multivitamins/Minerals 10 ml/Chromium/Copper/Manganese/Seleni/Zn 1 ml/ Amino Ac/ Electrol/Dextrose/Calcium 1,011 mls @ 100 mls/hr IV .BY DURATION [facility] Last Admin: 12/19/18 11:50 Dose: 100 mls/hr Amino Ac/Electrol/Dextrose/Calcium (Clinimix E 5/15) 1,000 mls @ 100 mls/hr IV .BY DURATION [facility] Last Admin: 12/19/18 22:31 Dose: 100 mls/hr Cefoxitin Sodium 2 gm/ Sodium (Chloride) 50 mls @ 100 mls/hr IV Q6H [facility] Stop: 12/20/18 10:29 Last Admin: 12/20/18 04:25 Dose: 100 mls/hr Dextrose/Lactated Ringer's (Dextrose 5%-Lactated Ringers) 1,000 mls @ 0 mls/hr IV ASDIRECTED [facility] Labetalol HCl (Normodyne) 5 mg IVPUSH Q5M PRN PRN Reason: SBP over 160 OR DBP over 95 Levothyroxine Sodium (Synthroid) 100 mcg PO ACBREAKFAST [facility] Last Admin: 12/19/18 09:19 Dose: 100 mcg Metoclopramide HCl (Reglan) 10 mg IVPUSH Q6H PRN PRN Reason: NAUSEA NOT CONTROL BY ZOFRAN Miscellaneous Information (Remove Patch) 1 ea TRDERM ONETIME ONE Stop: 12/20/18 10:01 Naloxone HCl (Narcan) 0.1 mg IVPUSH Q2M PRN PRN Reason: Respiratory Distress Last Admin: 12/19/18 22:49 Dose: 0.1 mg Verify Scop Patch 0 each TOP DAILY [facility] Last Admin: 12/19/18 10:24 Dose: Not Given Ondansetron HCl (Zofran) 4 mg IVPUSH Q4H PRN PRN Reason: Nausea/Vomiting Ondansetron HCl (Zofran Odt) 4 mg PO Q4H PRN PRN Reason: Nausea/Vomiting Pantoprazole Sodium (Protonix Granules) 40 mg PO Q24H [facility] Last Admin: 12/19/18 15:58 Dose: 40 mg Pneumococcal Polyvalent Vaccine (Pneumovax 23) 0.5 ml IM .ONCE ONE Stop: 12/20/18 14:01 Scopolamine (Transderm-Scop) 1.5 mg TRDERM Q72H [facility] Last Admin: 12/18/18 09:40 Dose: 1.5 mg Sumatriptan Succinate (Imitrex) 50 mg PO ASDIRECTED PRN PRN Reason: Headache Verapamil HCl (Calan) 80 mg PO TID [facility] Last Admin: 12/19/18 20:11 Dose: 80 mg Zolpidem Tartrate (Ambien) 10 mg PO BEDTIME [facility] Last Admin: 12/19/18 22:15 Dose: 10 mg Zonisamide (Zonisamide) 200 mg PO BEDTIME [facility] Last Admin: 12/19/18 22:15 Dose: 200 mg Discontinued Medications Acetaminophen (Tylenol Extra Strength) 1,000 mg PO ONETIME ONE Stop: 12/18/18 06:31 Last Admin: 12/18/18 05:39 Dose: 1,000 mg Bupropion HCl (Wellbutrin) 150 mg PO BID [facility] Stop: 12/17/18 21:01 Last Admin: 12/17/18 21:59 Dose: 150 mg Bupropion HCl (Wellbutrin) 150 mg PO ONETIME ONE Stop: 12/18/18 06:31 Last Admin: 12/18/18 05:39 Dose: 150 mg Celecoxib (Celebrex) 200 mg PO ONETIME ONE Stop: 12/18/18 06:31 Last Admin: 12/18/18 05:39 Dose: 200 mg Ropivacaine 38 ml/Dexamethasone 8 mg/Epinephrine HCl 0.4 mg/ Sodium Chloride 39.6 ml 0 ml NERVRT ASDIRECTED [facility] Last Admin: 12/18/18 11:10 Dose: 80 syringe Dexamethasone (Dexamethasone) Confirm Administered Dose 4 mg .ROUTE .STK-MED ONE Stop: 12/18/18 07:55 Fentanyl (Sublimaze) Confirm Administered Dose 100 mcg .ROUTE .STK-MED ONE Stop: 12/17/18 08:37 Fentanyl (Sublimaze) Confirm Administered Dose 250 mcg .ROUTE .STK-MED ONE Stop: 12/18/18 07:54 Fentanyl (Sublimaze) Confirm Administered Dose 250 mcg .ROUTE .STK-MED ONE Stop: 12/18/18 11:23 Fentanyl (Sublimaze) Confirm Administered Dose 250 mcg .ROUTE .STK-MED ONE Stop: 12/18/18 12:34 Gabapentin (Neurontin) 300 mg PO TID PRN PRN Reason: HEADACHE Gabapentin (Neurontin) 300 mg PO ONETIME ONE Stop: 12/18/18 06:31 Last Admin: 12/18/18 05:39 Dose: 300 mg Glycopyrrolate (Glycopyrrolate) 0.4 mg IVPUSH ONETIME ONE Stop: 12/17/18 09:01 Last Admin: 12/17/18 09:45 Dose: 0.4 mg Glycopyrrolate (Robinul) Confirm Administered Dose 1 mg .ROUTE .STK-MED ONE Stop: 12/18/18 07:55 Heparin Sodium (Porcine) (Heparin Lock Flush 100 Units/Ml) Confirm Administered Dose 500 units .ROUTE .STK-MED ONE Stop: 12/17/18 06:55 Last Admin: 12/17/18 10:08 Dose: 500 units Hydroxyzine HCl (Vistaril) 75 mg IM ONETIME ONE Stop: 12/18/18 14:16 Last Admin: 12/18/18 14:22 Dose: 75 mg Multivitamins/Minerals 10 ml/Thiamine HCl 200 mg/ Chromium/Copper/Manganese/ Seleni/Zn 1 ml/ Lactated Ringer's 1,013 mls @ 500 mls/hr IV ONETIME ONE Stop: 12/17/18 10:46 Last Admin: 12/17/18 08:19 Dose: 500 mls/hr Dextrose/Lactated Ringer's (Dextrose 5%-Lactated Ringers) 1,000 mls @ 100 mls/ hr IV ASDIRECTED [facility] Stop: 12/17/18 13:55 Dextrose/Lactated Ringer's (Dextrose 5%-Lactated Ringers) 1,000 mls @ 25 mls/ hr IV ASDIRECTED [facility] Last Admin: 12/18/18 05:41 Dose: 25 mls/hr Multivitamins/Minerals 10 ml/Chromium/Copper/Manganese/Seleni/Zn 1 ml/ Amino Ac/ Electrol/Dextrose/Calcium 1,011 mls @ 100 mls/hr IV .BY DURATION [facility] Last Admin: 12/17/18 15:02 Dose: 100 mls/hr Amino Ac/Electrol/Dextrose/Calcium (Clinimix E 515) 1,000 mls @ 100 mls/hr IV .BY DURATION [facility] Last Admin: 12/18/18 05:39 Dose: 100 mls/hr Lidocaine HCl/Dextrose (Lidocaine 2 Gm/D5w 500 Ml) 2 gm in 500 mls @ 15 mls/hr IV .Q24H [facility] Stop: 12/19/18 18:04 Last Admin: 12/19/18 15:19 Dose: Not Given Ketamine HCl 50 mg/ Sodium (Chloride) 50 mls @ 15.72 mls/hr IV ASDIRECTED [facility] Linezolid (Zyvox) Confirm Administered Dose 300 mls @ as directed .ROUTE .K- [facility] ONE Stop: 12/18/18 10:23 Lactated Ringer's (Ringers, Lactated) Confirm Administered Dose 1,000 mls @ as directed .ROUTE .[facility] ONE Stop: 12/18/18 12:03 Dextrose/Lactated Ringer's (Dextrose 5%-Lactated Ringers) 1,000 mls @ 80 mls/ hr IV ASDIRECTED [facility] Last Admin: 12/19/18 05:41 Dose: 80 mls/hr Iohexol (Omnipaque-300) 50 ml PO .ASDIRECTED [facility] Last Admin: 12/19/18 05:07 Dose: 50 ml Ketamine HCl (Ketalar) 26 mg IV ASDIRECTED [facility] Labetalol HCl (Normodyne) Confirm Administered Dose 20 mg .ROUTE .K-MED ONE Stop: 12/18/18 11:39 Levothyroxine Sodium (Synthroid) 100 mcg PO ACBREAKFAST [facility] Last Admin: 12/18/18 09:39 Dose: Not Given Lidocaine HCl (Xylocaine 2%) 100 mg IVPUSH ASDIRECTED [facility] Meropenem (Merrem) Confirm Administered Dose 500 mg .ROUTE .STK-MED ONE Stop: 12/18/18 10:23 Last Admin: 12/18/18 11:16 Dose: 500 mg Midazolam HCl (Versed 1 Mg/Ml) Confirm Administered Dose 2 mg .ROUTE .STK-MED ONE Stop: 12/17/18 08:37 Neostigmine Methylsulfate (Neostigmine) Confirm Administered Dose 5 mg .ROUTE .ST-MED ONE Stop: 12/18/18 07:55 Non-Formulary Medication (Total Parenteral Nutrition, Central) 1,000 ml .XX .Continue Order [facility] Stop: 12/19/18 12:00 Ondansetron HCl (Zofran) Confirm Administered Dose 4 mg .ROUTE .STK-MED ONE Stop: 12/18/18 07:55 Pantoprazole Sodium (Protonix) 40 mg PO ONETIME ONE Stop: 12/17/18 16:01 Last Admin: 12/17/18 15:02 Dose: 40 mg Pantoprazole Sodium (Protonix Iv) 40 mg IVPUSH Q24H [facility] Last Admin: 12/18/18 16:39 Dose: 40 mg Pharmacy Consult (Consult To Pharmacy) 1 each .XX ASDIRECTED [facility] Stop: 12/18/18 15:31 Propofol (Diprivan 20 Ml) Confirm Administered Dose 200 mg .ROUTE .STK-MED ONE Stop: 12/17/18 08:37 Propofol (Diprivan 20 Ml) Confirm Administered Dose 200 mg .ROUTE .STK-MED ONE Stop: 12/17/18 10:04 Propofol (Diprivan 20 Ml) Confirm Administered Dose 200 mg .ROUTE .STK-MED ONE Stop: 12/18/18 07:55 Rocuronium [place] (Zemuron) Confirm Administered Dose 50 mg .ROUTE .STK-MED ONE Stop: 12/18/18 07:55 Succinylcholine Chloride (Quelicin) Confirm Administered Dose 200 mg .ROUTE .STK -MED ONE Stop: 12/18/18 07:55 Sumatriptan Succinate (Imitrex) 50 mg PO ASDIRECTED PRN PRN Reason: HEADACHE Verapamil HCl (Calan) 80 mg PO TID [facility] Stop: 12/17/18 21:01 Last Admin: 12/17/18 21:59 Dose: 80 mg Verapamil HCl (Calan) 80 mg PO ONETIME ONE Stop: 12/18/18 06:31 Last Admin: 12/18/18 05:40 Dose: 80 mg Zolpidem Tartrate (Ambien) 10 mg PO BEDTIME PRN PRN Reason: SLEEP Last Admin: 12/17/18 22:00 Dose: 10 mg Zonisamide (Zonisamide) 200 mg PO BEDTIME [facility] Zonisamide (Zonisamide) 200 mg PO BEDTIME [facility] Zonisamide (Zonegran) 200 mg PO BEDTIME [facility] Stop: 12/17/18 21:01 Last Admin: 12/17/18 22:00 Dose: 200 mg Zonisamide (Zonegran) 200 mg PO BEDTIME [facility] - Exam Wound/Incisions: Dressing Dry and Intact, No Drainage General: Alert, Oriented HEENT: Pupils Equal Lungs: Clear to Auscultation, Normal Respiratory Effort Cardiovascular: Regular Rate, Regular Rhythm GI/Abdominal Exam: No Distention Extremities: Normal Inspection Skin: Warm Neurological: No New Focal Deficit - Problem List Review Problem List Initiated/Reviewed/Updated: Yes - My Orders Last 24 Hours: Active Orders 24 hr Category Date Time Status Cardiac Monitoring Discontinue [RC] Click to Edit Care 12/19/18 09:00 Active Communication Order [RC] ASDIRECTED Care 12/20/18 04:00 Active May Shower [RC] ASDIRECTED Care 12/19/18 07:45 Active Bariatric Diet [DIET] Diet 12/19/18 Breakfast Active Celecoxib [CeleBREX] Med 12/19/18 08:00 Active 200 mg PO DAILY@0800 Cyanocobalamin (Vitamin B12) [Vitamin B12] Med 12/20/18 09:00 Once 1,000 mcg IM ONETIME ONE Dextrose 5%-Lactated Ringers 1,000 ml Med 12/19/18 07:45 Active IV ASDIRECTED Heparin Sodium [Heparin Lock Flush 100 Units/ML] Med 12/19/18 21:27 Active 500 units FLUSH ASDIRECTED PRN Levothyroxine [Synthroid] Med 12/19/18 07:30 Active 100 mcg PO ACBREAKFAST Ondansetron [Zofran ODT] Med 12/19/18 07:45 Active 4 mg PO Q4H PRN Pantoprazole [ProTONIX Granules] Med 12/19/18 16:30 Active 40 mg PO Q24H Pneumococcal Polyvalent-23 Vac [Pneumovax 23] Med 12/20/18 14:00 Once 0.5 ml IM .ONCE ONE Remove Patch Med 12/20/18 10:00 Once 1 ea TRDERM ONETIME ONE SUMAtriptan [Imitrex] Med 12/19/18 08:15 Active 50 mg PO ASDIRECTED PRN Verapamil [Calan] Med 12/19/18 09:00 Active 80 mg PO TID Zolpidem [Ambien] Med 12/19/18 21:00 Active 10 mg PO BEDTIME Zonisamide Med 12/19/18 21:00 Active 200 mg PO BEDTIME buPROPion [Wellbutrin] Med 12/19/18 09:00 Active 150 mg PO BID Medication Orders Acetaminophen (Tylenol) 650 mg PO Q6H [facility] Last Admin: 12/20/18 04:25 Dose: 650 mg Admin: 12/19/18 22:16 Dose: 650 mg Admin: 12/19/18 16:00 Dose: 650 mg Admin: 12/19/18 11:12 Dose: 650 mg Admin: 12/19/18 04:26 Dose: 650 mg Admin: 12/18/18 22:34 Dose: 650 mg Admin: 12/18/18 16:39 Dose: 650 mg Bupropion HCl (Wellbutrin) 150 mg PO BID [facility] Last Admin: 12/19/18 20:11 Dose: 150 mg Admin: 12/19/18 09:19 Dose: 150 mg Celecoxib (Celebrex) 200 mg PO DAILY@0800 [facility] Last Admin: 12/19/18 09:18 Dose: 200 mg Cyanocobalamin (Vitamin B12) 1,000 mcg IM ONETIME ONE Stop: 12/20/18 09:01 Diphenhydramine HCl (Benadryl) 50 mg IVPUSH Q4H PRN PRN Reason: ITCHING Gabapentin (Neurontin) 300 mg PO TID [facility] Last Admin: 12/19/18 20:34 Dose: 300 mg Admin: 12/19/18 14:31 Dose: 300 mg Admin: 12/19/18 09:19 Dose: 300 mg Admin: 12/18/18 20:33 Dose: 300 mg Heparin Sodium (Porcine) (Heparin Sodium) 5,000 units SUBCUT Q12H [facility] Last Admin: 12/19/18 20:11 Dose: 5,000 units Admin: 12/19/18 09:18 Dose: 5,000 units Admin: 12/18/18 20:30 Dose: 5,000 units Heparin Sodium (Porcine) (Heparin Lock Flush 100 Units/Ml) 500 units FLUSH ASDIRECTED PRN PRN Reason: Keep Vein Open Hydromorphone HCl (Dilaudid [place] 15 Mg In Ns 30 Ml) 0 mg IV ASDIRECTED PRN; Protocol PRN Reason: Pain Last Admin: 12/19/18 11:51 Dose: 15 mg Admin: 12/18/18 11:10 Dose: 0.3 mg Hydroxyzine HCl (Vistaril) 100 mg IM Q4H PRN PRN Reason: pain Last Admin: 12/19/18 02:49 Dose: 100 mg Multivitamins/Minerals 10 ml/Chromium/Copper/Manganese/Seleni/Zn 1 ml/ Amino Ac/ Electrol/Dextrose/Calcium 1,011 mls @ 100 mls/hr IV .BY DURATION [facility] Last Admin: 12/19/18 11:50 Dose: 100 mls/hr Infusion: 12/19/18 02:25 Dose: 100 mls/hr Admin: 12/18/18 16:18 Dose: 100 mls/hr Amino Ac/Electrol/Dextrose/Calcium (Clinimix E 12/26) 1,000 mls @ 100 mls/hr IV .BY DURATION [facility] Last Admin: 12/19/18 22:31 Dose: 100 mls/hr Infusion: 12/19/18 12:20 Dose: 100 mls/hr Admin: 12/19/18 02:20 Dose: 100 mls/hr Cefoxitin Sodium 2 gm/ Sodium (Chloride) 50 mls @ 100 mls/hr IV Q6H [facility] Stop: 12/20/18 10:29 Last Admin: 12/20/18 04:25 Dose: 100 mls/hr Admin: 12/19/18 21:35 Dose: 100 mls/hr Admin: 12/19/18 15:58 Dose: 100 mls/hr Admin: 12/19/18 09:17 Dose: 100 mls/hr Admin: 12/19/18 04:26 Dose: 100 mls/hr Admin: 12/18/18 22:34 Dose: 100 mls/hr Admin: 12/18/18 16:39 Dose: 100 mls/hr Dextrose/Lactated Ringer's (Dextrose 5%-Lactated Ringers) 1,000 mls @ 0 mls/hr IV ASDIRECTED [facility] Labetalol HCl (Normodyne) 5 mg IVPUSH Q5M PRN PRN Reason: SBP over 160 OR DBP over 95 Levothyroxine Sodium (Synthroid) 100 mcg PO ACBREAKFAST [facility] Last Admin: 12/19/18 09:19 Dose: 100 mcg Metoclopramide HCl (Reglan) 10 mg IVPUSH Q6H PRN PRN Reason: NAUSEA NOT CONTROL BY ZOFRAN Miscellaneous Information (Remove Patch) 1 ea TRDERM ONETIME ONE Stop: 12/20/18 10:01 Naloxone HCl (Narcan) 0.1 mg IVPUSH Q2M PRN PRN Reason: Respiratory Distress Last Admin: 12/19/18 22:49 Dose: 0.1 mg Verify Scop Patch 0 each TOP DAILY [facility] Last Admin: 12/19/18 10:24 Dose: Admin: 12/18/18 17:56 Dose: Ondansetron HCl (Zofran) 4 mg IVPUSH Q4H PRN PRN Reason: Nausea/Vomiting Ondansetron HCl (Zofran Odt) 4 mg PO Q4H PRN PRN Reason: Nausea/Vomiting Pantoprazole Sodium (Protonix Granules) 40 mg PO Q24H [facility] Last Admin: 12/19/18 15:58 Dose: 40 mg Pneumococcal Polyvalent Vaccine (Pneumovax 23) 0.5 ml IM .ONCE ONE Stop: 12/20/18 14:01 Scopolamine (Transderm-Scop) 1.5 mg TRDERM Q72H [facility] Last Admin: 12/18/18 09:40 Dose: 1.5 mg Sumatriptan Succinate (Imitrex) 50 mg PO ASDIRECTED PRN PRN Reason: Headache Verapamil HCl (Calan) 80 mg PO TID [facility] Last Admin: 12/19/18 20:11 Dose: 80 mg Admin: 12/19/18 14:31 Dose: 80 mg Admin: 12/19/18 09:19 Dose: 80 mg Zolpidem Tartrate (Ambien) 10 mg PO BEDTIME [facility] Last Admin: 12/19/18 22:15 Dose: 10 mg Zonisamide (Zonisamide) 200 mg PO BEDTIME [facility] Last Admin: 12/19/18 22:15 Dose: 200 mg - Assessment Assessment (Free Text/Narrative):: 12/17/2018, Surgeon Davey Amato MD I. Upper Gastrointestinal Endoscopy for: II. 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 Exploratory Laparotomy with a) esophagogastrectomy with Rosina en Y esophagojejunostomy b) small bowel resection, for treatment of fixed stricture of small bowel Rosina limb at the level of the transverse colon and associated marked inflammation of gastric pouch and gastrojejunostomy 1. Malnutrition 2. Episode of oversedation requiring Narcan administration during the night - Plan Plan (Free Text/Narrative):: 1. Continue step 2 diet for gastric bypass (no solids) 2. Decrease TPN to a rate of 40 cc/hr, continue current content for malnutrition 3. AM labs: CBC, CMP, Mg, Phosphorous 4. Switch to oral Dilaudid, 2 tablets, every 4 hours, as needed and discontinue [employer]SHOVEL [employer]IVER for pain management 5. Decrease Zonisamide to 100 mg and also decrease Ambien to 5 mg. Keep two hours between administration of these medications due to medication overdose. 6. Recheck as needed or in AM
[2018-12-20] MEDS ORDERED: Zolpidem 5 MG Tab PO PRN (08:07)
[2018-12-20] MEDS: Heparin Sodium 5,000 Units/ML Vial SUBCUT SCH ×2 (08:09→20:30)
[2018-12-20] MEDS: Celecoxib 200 MG Cap PO SCH (08:09)
[2018-12-20] MEDS: Verapamil 80 MG Tab PO SCH ×3 (08:10→20:30)
[2018-12-20] MEDS: Levothyroxine 100 MCG Tab PO SCH (08:10)
[2018-12-20] MEDS: VERIFY SCOP PATCH TOP SCH (08:11)
[2018-12-20] MEDS: Gabapentin 250 MG/5 ML Solution ML 470 ML Bottle PO SCH ×3 (08:15→20:36)
[2018-12-20] MEDS ORDERED: Central Total Parenteral Nutrition Bag SCH (08:15)
[2018-12-20] MEDS ORDERED: Cyanocobalamin (Vitamin B12) 1,000 MCG/ML SDV IM ONE (09:00)
[2018-12-20] MEDS: 1: AA 5%/Calcium/D15W/Lytes 1,000 ML with MVI, Adult with Vitamin K 10 ML, Chromium/Copp IV SCH ×6 (09:24→18:26)
[2018-12-20] MEDS: HYDROmorphone 2 MG Tab PO PRN ×4 (10:18→22:05)
--- NOTE | 2018-12-20 10:57 | CRLCR ---
INDICATION: Evaluate Rosina-en-Y gastric bypass surgery. COMPARISON: None. TECHNIQUE: Three-view study abdomen. Findings: Orally administered contrast is seen through the anastomosis into the small bowel. On the available images, no evidence of extravasation of contrast. Contrast is following through in the small bowel on the 15 minute radiograph. A surgical drain identified in the left upper quadrant of the abdomen. Small amount of pneumoperitoneum as expected in the recent postop patient. IMPRESSION: 1. Rosina-en-Y gastric bypass surgery without any complications on this available study. 2. Small amount of pneumoperitoneum is identified. 3. Surgical drain identified in the left upper quadrant of the abdomen. Dictated by Grey Biggs MD @ Dec 20 2018 10:52AM Signed by Dr. Grey Biggs @ Dec 20 2018 10:55AM
[2018-12-20] MEDS ORDERED: Pneumococcal Polyvalent-23 Vaccine 0.5 ML SDV IM ONE (14:00)
[2018-12-20] MEDS: Pantoprazole 40 MG Delayed-Release Granules 1 Packet PO SCH (15:53)
[2018-12-20] MEDS ORDERED: Zonisamide 50 MG Capsule PO SCH (21:00)
[2018-12-21] MEDS: HYDROmorphone 2 MG Tab PO PRN ×2 (04:15→08:39)
[2018-12-21] MEDS: Acetaminophen Soln 650 MG/20.3 ML UD Cup PO SCH (04:19)
[2018-12-21] MEDS: 1: AA 5%/Calcium/D15W/Lytes 1,000 ML with MVI, Adult with Vitamin K 10 ML, Chromium/Copp IV SCH ×3 (07:10)
[2018-12-21] MEDS: Levothyroxine 100 MCG Tab PO SCH (07:15)
[2018-12-21] MEDS: Heparin Sodium 5,000 Units/ML Vial SUBCUT SCH (07:15)
[2018-12-21] MEDS: Celecoxib 200 MG Cap PO SCH (07:15)
[2018-12-21] MEDS: Verapamil 80 MG Tab PO SCH (09:03)
[2018-12-21] MEDS: Gabapentin 250 MG/5 ML Solution ML 470 ML Bottle PO SCH (09:03)
[2018-12-21] MEDS: Scopolamine 1.5 MG Transdermal Patch TRDERM SCH (09:04)
[2018-12-21] MEDS: VERIFY SCOP PATCH TOP SCH (09:04)
--- NOTE | 2018-12-21 14:21 | DISCH ---
ADMISSION DIAGNOSES: 1. Pharyngeal esophageal dysphagia. 2. Tube feedings. 3. Malnutrition. 4. SP Rosina-en-Y gastric bypass surgery. 5. Postsurgical malabsorption. 6. B12 deficiency. 7. Vitamin B deficiency. 8. Vitamin D deficiency. 9. Epigastric pain. 10.Hypertension. 11.Hyperlipidemia. 12.Hypothyroidism. DISCHARGE DIAGNOSES: 1. Esophagogastroduodenoscopy and placement of left subclavian triple lumen for stricture at the Rosina limb passing through the transverse colon mesentery and inadequate peripheral vein access. Date of surgery: 12/17/2018. Surgeon: Davey Amato MD. 2. Exploratory laparotomy with: a. Esophagogastrectomy with Rosina-en-Y esophagojejunostomy. b. Small-bowel resection for fixed stricture of the small bowel Rosina limb at the level of the transverse colon and associated marked inflammation of gastric pouch and gastrojejunostomy. HISTORY: Elaine Wheeler is a pleasant 43-year-old female who had Rosina-en-Y gastric bypass surgery on 06/04/[address] Duff at [place], [place]. On 07/06/2018, she had a partial small bowel obstruction with incidental findings of jejunal ulcers. On 09/12/2018, she had an esophagogastroduodenoscopy and placement of an NG tube. She was referred to [facility] for a consultation on 12/12/2018 for consultation from another bariatric surgeon. She was referred by Shawn Monroe MD, and Dr. Canales. CT on 12/05/2018 showed narrowing of the proximal jejunum with additional area of mild narrowing 2-3 cm more proximally. Elaine had an NG tube in since August and has been then supplementing through the NG tube with Replete protein supplement 12 hours daily. She reported dysphagia, nausea, and occasional dry heaving. She was admitted on 12/17/2018 after an esophagogastroduodenoscopy and placement of a subclavian triple-lumen catheter, and after preoperative evaluation, discussion of possible risks and possible complications, she wished to proceed with surgical procedure. On 12/18/2018, she had the above surgical procedure. She had no operative complications. She remained on TPN from the time she had the esophagogastroduodenoscopy, date of admission until date of discharge. On postoperative day #1, she was started on a step 2 gastric bypass diet without cereal. She was able to shower. She was changed to oral pain medication. Her activity was good. She received physical therapy. Vital signs remained stable. Her laboratory tests were monitored. She did have Narcan for increased sleepiness because of Dilaudid, her Ambien 10 mg, and her zonisamide of 200 mg. These doses were decreased and not given together. Elaine was able to be discharged on 12/21/2018 with no complications. PHYSICAL EXAMINATION: GENERAL: Elaine Wheeler is a 43-year-old female. VITAL SIGNS: Height is 5 feet 2.99 inches, weight is 191 pounds, BMI is 33. TPR is 97.4, 79, 16, blood pressure is 117/73. HEENT: Negative. NECK: Supple. HEART: Regular rate and rhythm. LUNGS: Clear. ABDOMEN: Stapled incision looked good. Abdominal binder is on. 4x4s over REINA drain sites. EXTREMITIES: Without peripheral edema. DISPOSITION: Discharged to home. CONDITION: Stable and improving. FOLLOWUP: With Thalia Horowitz PA-C, on 12/26/2018 at 10 a.m. HOME MEDICATIONS: 1. Tylenol 650 mg oral q.6 hours, scheduled for 2 weeks. 2. Celebrex 200 mg p.o. daily, #14. 3. Dilaudid 2 mg every 4 hours p.r.n. pain, #42. 4. Zofran ODT 4 mg every 4 hours p.r.n. nausea, #30. 5. Ambien 5 mg at bedtime, decreased from 10 mg. 6. Zonisamide 100 mg oral at bedtime, decreased from 200 mg. 7. She is to resume taking her Eletriptan 40 mg oral every 2 hours p.r.n. headache. 8. Gabapentin 300 mg oral as needed for headache. 9. Levothyroxine 100 mcg before breakfast. 10.Omeprazole 20 mg oral daily. 11.Phenergan 25 mg oral 4 times a day. 12.Calan/verapamil 80 mg oral 3 times a day. 13.Bupropion 150 mg oral twice daily. 14.Discontinue taking vitamin B12, 10 mg Ambien, 200 mg of zonisamide, and tramadol 50 mg every 6 hours p.r.n. pain. DIET: Step 2 gastric bypass diet with no cereal until 01/02/2019. Drink 8 to 10 glasses of water a day. ACTIVITY: No lifting over 10 pounds for 6 weeks. Other activity, walk at least 6 times daily, distance and time as tolerated. Driving: Do not drive for 1 week and while on pain medication. Shower/bathing: May shower. DISCHARGE INSTRUCTIONS: Notify provider if any fever, increased pain, nausea, or vomiting. Keep site clean and dry. Wear abdominal binder for 6 weeks and then as tolerated. 1. Use incentive spirometer 10 times every hour while awake for 1 week. 2. Keep a food journal, bring to clinic appointments.
--- NOTE | 2018-12-24 08:00 | OR ---
DATE OF PROCEDURE: 12/17/2018 SURGEON: Davey Amato MD PREOPERATIVE DIAGNOSES: 1. 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 2. Indication for central venous access. POSTOPERATIVE DIAGNOSES: 1. Stricturing of Rosina limb passing through the level of the transverse colon mesentery. 2. Indication for central venous access. ANESTHESIA: Local plus IV sedation. INDICATIONS FOR PROCEDURE: A 43-year-old who is status post a Rosina-en-Y gastric bypass at [facility] in [place] in May. She has been having significant problems since that operation and has had a nasogastric feeding tube in across a stricture that is described as being in the proximal Rosina limb. The feeding tube has been in now for approximately 4 months. She was seen in our clinic last week, and it appears that, based on the report, we would likely need to revise the anatomy of the Rosina-en-Y gastric bypass. She is admitted at this time for central line insertion for some continued TPN and then removal of the tube and an upper endoscopy to confirm the level of the pathology and probable revision surgery tomorrow morning for definitive correction of the problem. Potential risks of today's procedure including bleeding, infection, pneumothorax or hemothorax, or vascular injury with central line insertion were reviewed, and the patient wishes to proceed. DETAILS OF PROCEDURE: The patient was taken to the operating room and placed in a left lateral decubitus position. The nasogastric feeding tube had been removed at that point, and after IV sedation was administered, the upper GI endoscope was passed orally through the length of esophagus into the gastric pouch and from there through the gastrojejunostomy. Roughly 10 cm distal to the gastrojejunostomy, there was a quite narrowed area, which was also significantly inflamed in terms of edema and friability of the mucosa. The scope could just barely be passed through that area and this was before air insufflation. I suspect this region was quite tight from a functional standpoint when taking anything other than quite thin liquids. Beyond that level, the Rosina limb appeared to be otherwise normal. The scope was then withdrawn, and the upper endoscopy then completed. The patient was now placed in a supine position. The upper chest and neck areas were prepped and draped, and the left subclavian area anesthetized with 1% lidocaine mixed with Marcaine, and the left subclavian vein cannulated. Guidewire was passed. Over the guidewire, a triple-lumen catheter was positioned. Good in and outflow was noted. The ports were flushed with heparinized saline. The catheter was sutured to the skin using 3-0 silk stitch, and subsequent chest x-ray showed good catheter position without any complications. The patient was taken to the recovery room in satisfactory condition. The plan will be to proceed with resectional procedure. This would require resection of the gastrojejunostomy and the proximal portion of the Rosina limb then reconstructed at the gastrojejunostomy. We will try to do this in an antecolic position, so as to avoid restenosis of the Rosina limb, if it is brought back through the retrocolic approach. Davey Amato MD /[id number]
--- NOTE | 2018-12-24 11:27 | OR ---
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 POSTOPERATIVE DIAGNOSES: 1. Stricture of small bowel Rosina limb at the level of the transverse mesocolon. 2. Marked dense inflammation of gastric pouch and gastrojejunostomy. OPERATIVE PROCEDURE: Exploratory laparotomy with: 1. Esophagogastrectomy with Rosina-en-Y esophagojejunostomy (76795). 2. Separate small bowel resection (57091). ANESTHESIA: General. FRACTIONATION SUPERVISOR: JUDITH Vuong INDICATION FOR PROCEDURE: Please see earlier progress notes. The plan is to proceed with an exploratory laparotomy with resection of the gastrojejunostomy and proximal Rosina limb where a fixed stricture has been identified and has remained problematic now for several months. This is to be done with an open approach, due to the retrocolic position of the Rosina limb, making a dissection in this area by laparoscopic approach unsafe. Potential risks of the procedure including bleeding, infection, injury to underlying viscera, possible leaks from GI tract closures, recurrent stricture formation were all reviewed, and the patient wishes to proceed. DETAILS OF PROCEDURE: The patient was taken to the operating room and placed in a supine position. After general endotracheal anesthesia was induced, the abdomen was prepped and draped. Welsh catheter was also inserted. An upper midline incision from the xiphoid to just above the umbilicus was made and carried down through the full-thickness abdominal wall. Upon entering the peritoneal cavity, general exploration was undertaken. Apart from the postoperative changes related to the previous gastric bypass, no significant abnormalities were noted. Initial dissection involved division of the left triangular ligament of the liver. Following the mobilization of the liver, the area around the gastrojejunostomy was then identified. There was an extremely dense inflammatory response in the gastric pouch and entire gastrojejunostomy. The plane of dissection of this initially did not appear to be safe at that level, and likewise the gastric pouch at that level did not appear to be amenable to satisfactory anastomosis due to the [id number] inflammation present. Given this, the proximal plane of dissection and resection at this point was moved upward to the distal esophagus, just above the esophagogastric junction. This area was easily encircled and divided with the MIKALYA black loads. Attention was then taken to the infracolic area. The Rosina limb was noted, as expected, to pass up into the transverse mesocolon. There was a dense inflammatory response present there as well, which resulted in an area of the small bowel over an extended length of no more than 1 cm in diameter, consistent with the preoperative evaluation of stricturing at the level of the transverse mesocolon involving the Rosina limb. This was eventually dissected free through the retrocolic tunnel, and it was confirmed at this point that the Rosina limb had some fixed stricturing within it. At that point, the small bowel was divided just distal to the stricturing of the Rosina limb. The remainder of the Rosina limb at this point remained satisfactory in length, was measured at 100 cm, and no additional pathology was seen. To facilitate adequate tension-free esophagojejunostomy, a small additional area of small bowel was resected at the proximal end of the Rosina limb, leaving the patient a 95 cm Rosina limb at this point. The mesentery of the resected small bowel was then divided with mesenteric loads, along with Harmonic scalpel. As we came up into the area of the gastrojejunostomy and resected gastric pouch, the area between the gastric pouch and gastrojejunostomy and aorta was densely inflamed. This was carefully dissected free with combination of blunt and cautery dissection, and the remaining mesentery of the small bowel and the gastric pouch were then divided as it became cleared up with MIKAYLA staple loads. The specimen consisting of the gastric pouch, gastrojejunostomy, and the proximal portion of the Rosina limb was then delivered from the field. At this point, the transverse mesocolon defect was closed with some 3-0 Vicryl stitch. The Rosina limb as it now presented after reduction of a small additional amount of small bowel came up to the divided esophagus without tension. The anvil of a 25 mm EEA stapler was passed through the mouth via an attached [place] sump type tube, brought up through the divided end of the esophagus. The divided end of the Rosina limb was then opened and main body of the EEA stapler passed several centimeters into the lumen of small bowel, brought up the anvil, united with it, thus creating the esophagojejunostomy. Upon removal of the stapler, double donuts of mucosa were noted within it, and the small bowel was closed off with a vascular staple line. The esophagojejunostomy was then reinforced with some 3-0 Vicryl seromuscular stitch and fibrin sealant. At this point, the overall evaluation of the situation was obtained. The Rosina limb was measured at 95 cm, the biliopancreatic limb was measured at 100 cm, and the patient had a satisfactory length of common limb well above the lower limit needed for adequate absorption. One additional comment on this case is that, while the patient presently has an esophagojejunostomy without a gastric pouch, physiologically this would be identical to a gastric bypass with current pouches being more or less past the conduit, measuring typically in the 10 to 15 mL volume range, so this should function essentially the same as a gastric bypass from a physiologic standpoint. At this point, the abdomen was irrigated with antibiotic-containing saline solution. A single Sebastien-Morgan drain was taken through a stab wound in the left subcostal area and placed adjacent to the esophagojejunostomy. The omentum was draped down across the area of the incision and midline fascia and closed with #2 Vicryl stitch, subcutaneous tissue with 2 layers of 3-0 Vicryl stitch, and the skin with marilee. Dressing was applied. The patient was taken to the recovery room in satisfactory condition. There were no evident complications. Davey Amato MD /[id number]
== END 2018-12-21 10:30 | disposition home or self-care (01) | DRG 220 ==
LOC: JP.SDSSCHI 07:09 → JP.SDS 07:09 → EDSTATUS 09:45 → JP.MS 10:20
PROVIDERS: ADMIT Surgery; ATTEND Surgery
PROC: 0DJ08ZZ Inspection of Upper Intestinal Tract, Via Natural or Artificial Opening Endoscopic (ICD-10-PCS; 2018-12-17)
PROC: 05HY33Z Insertion of Infusion Device into Upper Vein, Percutaneous Approach (ICD-10-PCS; 2018-12-17)
PROC: 0D150ZA Bypass Esophagus to Jejunum, Open Approach (ICD-10-PCS; principal; 2018-12-18)
PROC: 0DB30ZZ Excision of Lower Esophagus, Open Approach (ICD-10-PCS; 2018-12-18)
PROC: 0DT60ZZ Resection of Stomach, Open Approach (ICD-10-PCS; 2018-12-18)
PROC: 0DBA0ZZ Excision of Jejunum, Open Approach (ICD-10-PCS; 2018-12-18)
DX: K56.690 Other partial intestinal obstruction (principal); K95.89 Other complications of other bariatric procedure; R13.14 Dysphagia, pharyngoesophageal phase; Z68.33 Body mass index [BMI] 33.0-33.9, adult; E46 Unspecified protein-calorie malnutrition; Y83.2 Surgical operation with anastomosis, bypass or graft as the cause of abnormal reaction of the patient, or of later complication, without mention of misadventure at the time of the procedure; K91.2 Postsurgical malabsorption, not elsewhere classified; Z98.84 Bariatric surgery status; Z98.0 Intestinal bypass and anastomosis status; F32.9 Major depressive disorder, single episode, unspecified; E55.9 Vitamin D deficiency, unspecified; K21.9 Gastro-esophageal reflux disease without esophagitis; Z86.32 Personal history of gestational diabetes; M54.9 Dorsalgia, unspecified; E03.9 Hypothyroidism, unspecified; E78.5 Hyperlipidemia, unspecified; E53.8 Deficiency of other specified B group vitamins; Z90.710 Acquired absence of both cervix and uterus; E53.9 Vitamin B deficiency, unspecified; G72.49 Other inflammatory and immune myopathies, not elsewhere classified; Z87.11 Personal history of peptic ulcer disease
CPT/HCPCS: 36415; 74240; 80053; 83735; 84100; 84443; 85025; 85027; 86850; 86900; 86901; 88305; 88307; 88341; 88342; 90732; 94762; A9270-GY; C9113; J0171; J0330; J0694; J1100; J1170; J1642; J1644; J2001; J2020; J2185; J2250; J2310; J2405; J2704; J2710; J2795; J3010; J3410; J3411; J3420; J3490; J7042; J7050; J7120; Q9967

== ENCOUNTER 2019-01-09 21:00 | Inpatient (IN) | payer BC ==
[2019-01-09] MEDS ORDERED: HYDROmorphone 1 MG/ML Syringe IVPUSH ONE (21:34)
--- NOTE | 2019-01-09 21:36 | EDM.PDOC ---
ED HPI GENERAL MEDICAL PROBLEM - General Chief Complaint: Abdominal Pain Stated Complaint: MEDICAL VIA AMBULANCE Time Seen by Provider: 01/09/19 21:32 Source of Information: Reports: Patient History Limitations: Reports: No Limitations - History of Present Illness INITIAL COMMENTS - FREE TEXT/NARRATIVE: This lady is being transferred from [place] to our hospital for Dr. Amato. She had a Rosina-en-Y that sometime in the past and then had a revision 3 weeks ago. Today she was having stabbing pain and fever and so she went to the ER in [place] and a CT showed that she was having a leak at the abdomen anastomosis so she was transferred here for possible surgery. She said she is doing okay except she is having quite a bit of pain. She's requesting some medication. Dr. Amato' s been contacted and will plan on surgery in the morning Left Upper Abdomen Pain Score (Numeric/FACES): 8 - Related Data Allergies Allergy/AdvReac Type Severity Reaction Status Date / Time No Known Allergies Allergy Verified 12/17/18 07:54 Home Meds: Home Meds Eletriptan HBr 40 mg PO Q2H PRN 12/14/18 [History] Gabapentin [Neurontin] 300 mg PO ASDIRECTED PRN 12/14/18 [History] Levothyroxine [Synthroid] 100 mcg PO ACBREAKFAST 12/14/18 [History] Omeprazole 20 mg PO DAILY 12/14/18 [History] Ondansetron [Zofran ODT] 4 mg PO Q8H PRN 12/14/18 [History] Promethazine [Phenergan] 25 mg PO QID PRN 12/14/18 [History] Verapamil [Calan] 80 mg PO TID 12/17/18 [History] buPROPion [Wellbutrin] 150 mg PO BID 12/19/18 [History] Acetaminophen [Tylenol] 650 mg PO Q6H cup 12/21/18 [Rx] Celecoxib [CeleBREX] 200 mg PO DAILY@0800 #14 cap 12/21/18 [Rx] HYDROmorphone [Dilaudid] 2 mg PO Q4H PRN #42 tablet 12/21/18 [Rx] Ondansetron [Zofran ODT] 4 mg PO Q4H PRN #30 tab.dis 12/21/18 [Rx] Zolpidem [Ambien] 5 mg PO BEDTIME PRN tablet 12/21/18 [Rx] Zonisamide 100 mg PO BEDTIME cap 12/21/18 [Rx] Hydrocodone/Acetaminophen [Hydrocodon-Acetaminophn 10-325] 1 tab PO Q4H PRN [History] Past Medical History HEENT History: Reports: Impaired Vision Gastrointestinal History: Reports: GERD, PUD, Other (See Below) Other Gastrointestinal History: nausea with eating Genitourinary History: Reports: Urinary Incontinence 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: Reports: Fibroids, Musculoskeletal History: Reports: Other (See Below) Other Musculoskeletal History: whip lash Neurological History: Reports: Migraines Endocrine/Metabolic History: Reports: Hypothyroidism, Obesity/BMI 30+ Hematologic History: Reports: B12 Deficiency - Infectious Disease History Infectious Disease History: Reports: Chicken Pox - Past Surgical History HEENT Surgical History: Reports: None GI Surgical History: Reports: Bariatric Procedure, EGD Female Surgical History: Reports: Section, Hysterectomy, Other (See Below) Other Female Surgeries/Procedures: bladder stimulator Endocrine Surgical History: Reports: None Neurological Surgical History: Reports: Other (See Below) Other Neurological Surgeries/Procedures: ablation in spine after whip lash Musculoskeletal Surgical History: Reports: Other (See Below) Other Musculoskeletal Surgeries/Procedures:: muscle bx due to elevated ck Social & Family History - Tobacco Use Smoking Status *Q: Never Smoker - Caffeine Use Caffeine Use: Reports: None ED ROS GENERAL - Review of Systems Review Of Systems: ROS reveals no pertinent complaints other than HPI. ED EXAM, GI/ABD - Physical Exam Exam: See Below Exam Limited By: No Limitations General Appearance: Alert, WD/WN, Mild Distress Respiratory/Chest: No Respiratory Distress, Lungs Clear Cardiovascular: Regular Rate, Rhythm GI/Abdominal Exam: Other (She's wearing an abdominal binder so the abdominal exam is limited. The binder was not removed.) Extremities: Normal Inspection Course - Vital Signs Last Recorded V/S: Last Vital Signs Temp 38.0 C 01/09/19 21:11 Pulse 121 H 01/09/19 21:11 Resp 16 01/09/19 21:11 BP 138/83 01/09/19 21:11 Pulse Ox 96 01/09/19 21:11 Departure - Departure Time of Disposition: 21:35 Disposition: Admitted As Inpatient 67 Condition: Serious Clinical Impression: Leak of anastomosis between gastrointestinal structures - Discharge Information Referrals: PCP,None [Primary Care Provider] -
[2019-01-09] MEDS ORDERED: Naloxone 0.4 MG/ML SDV IVPUSH PRN (22:14)
[2019-01-09] MEDS ORDERED: Ondansetron 4 MG/2 ML SDV IVPUSH PRN (22:15)
[2019-01-09] MEDS ORDERED: Acetaminophen 1,000 MG in Premix Bag 1 BAG IV ONE (22:30)
[2019-01-09] MEDS: Dextrose 5%-Lactated Ringers 1,000 ML IV SCH (22:35)
[2019-01-09] MEDS: HYDROmorphone/Normal Saline 15 MG/30 ML PCA IV PRN (22:49)
[2019-01-09] MEDS: Meropenem 500 MG in Sodium Chloride 0.9% 50 ML IV SCH (23:35)
[2019-01-10] MEDS: Meropenem 500 MG in Sodium Chloride 0.9% 50 ML IV SCH ×4 (04:14→23:20)
[2019-01-10] MEDS ORDERED: Acetaminophen 1,000 MG in Premix Bag 1 BAG IV ONE ×2 (04:30→10:30)
[2019-01-10] MEDS: Dextrose 5%-Lactated Ringers 1,000 ML IV SCH ×3 (05:36→23:27)
[2019-01-10] MEDS ORDERED: Meropenem 500 MG SDV ONE (06:08)
[2019-01-10] MEDS ORDERED: fentaNYL 250 MCG/5 ML SDV ONE ×2 (06:46→07:54)
[2019-01-10] MEDS ORDERED: Neostigmine Methylsulfate 1 MG/ML 5 ML Syringe ONE (06:46)
[2019-01-10] MEDS ORDERED: Propofol 200 MG/20 ML SDV ONE (06:46)
[2019-01-10] MEDS ORDERED: Succinylcholine 200 MG/10 ML MDV ONE (06:46)
[2019-01-10] MEDS ORDERED: Dexamethasone 4 MG/ML SDV ONE (06:46)
[2019-01-10] MEDS ORDERED: Ondansetron 4 MG/2 ML SDV ONE (06:46)
[2019-01-10] MEDS ORDERED: Glycopyrrolate 0.2 MG/ML 5 ML MDV ONE (06:46)
[2019-01-10] MEDS ORDERED: Rocuronium 50 MG/5 ML Vial ONE (06:46)
[2019-01-10] MEDS ORDERED: Scopolamine 1.5 MG Transdermal Patch ONE (07:08)
[2019-01-10] MEDS ORDERED: Lactated Ringers 1,000 ML ONE (07:38)
[2019-01-10] MEDS ORDERED: Naloxone 0.4 MG/ML SDV IVPUSH PRN (08:00)
[2019-01-10] MEDS ORDERED: Lidocaine 2% 100 MG/5 ML Syringe IVPUSH SCH (08:00)
[2019-01-10] MEDS ORDERED: Ketamine 50 MG in Sodium Chloride 0.9% 49.5 ML IV SCH (08:00)
[2019-01-10] MEDS: Tranexamic Acid 1,000 MG in Sodium Chloride 0.9% 50 ML IV SCH ×2 (08:05→11:38)
[2019-01-10] MEDS ORDERED: hydrOXYzine HCl 100 MG/2 ML SDV IM ONE (08:40)
[2019-01-10] MEDS ORDERED: fentaNYL 100 MCG/2 ML SDV IVPUSH ONE ×2 (08:40→09:01)
[2019-01-10] MEDS: Lidocaine 0.4%/D5W 2 GM/500 ML BAG IV SCH (10:38)
[2019-01-10] MEDS ORDERED: Metoclopramide 10 MG/2 ML SDV IVPUSH PRN (10:44)
[2019-01-10] MEDS ORDERED: Labetalol 20 MG/4 ML Syringe IVPUSH PRN (10:44)
[2019-01-10] MEDS ORDERED: diphenhydrAMINE 50 MG/ML SDV IVPUSH PRN (10:44)
[2019-01-10] MEDS: Pantoprazole 40 MG Vial IVPUSH SCH (11:33)
[2019-01-10] MEDS: HYDROmorphone/Normal Saline 15 MG/30 ML PCA IV PRN (14:56)
[2019-01-10] MEDS ORDERED: MVI, Adult with Vitamin K 10 ML, Thiamine 200 MG, Chromium/Copper/Mang/Selen/Zn 1 ML in... IV SCH ×4 (16:00)
[2019-01-11] MEDS ORDERED: Iohexol 300 MG/ML 30 ML Bottle PO ONE (03:16)
[2019-01-11] MEDS ORDERED: Iopamidol 612 MG/ML 150 ML Bottle IV STA (03:54)
[2019-01-11] MEDS: Meropenem 500 MG in Sodium Chloride 0.9% 50 ML IV SCH ×4 (04:48→23:16)
--- NOTE | 2019-01-11 05:10 | CRLCT ---
INDICATION: Status post esophagojejunostomy leak 3 weeks ago TECHNIQUE: CT Abdomen and pelvis with i.v. contrast. Coronal and sagittal reformats were obtained. Oral contrast was administered for the examination. CONTRAST: 124 mL Isovue 300 COMPARISON: 01/09/2019 FINDINGS: Lower chest: Small moderate left pleural effusion is present and increased from prior exam. There is compressive atelectasis of most of the visualized left lower lobe. Mild discoid atelectasis is seen in the right lower lobe. A neurostimulator is present in the left gluteal region with a single lead traversing the right S3 foramen. Liver: Unremarkable. Spleen: Unremarkable. Pancreas: Unremarkable. Gallbladder: Moderate nonspecific distention of the gallbladder is present, measuring 5.3 cm and is similar in appearance to prior exam. Kidney: There is a punctate density in the midzone of the left kidney noted which may represent a 1 mm stone. Adrenal: Unremarkable. Bowel: Two surgical drains have been placed in the interval within the left upper quadrant. Medial to the cephalad most drain on image 31, there are new small amount of ill-defined densities lateral to the esophagojejunostomy staple line. The patient is status post gastric bypass with resection of most of the excluded stomach. The appendix is not visualized. Vascular: See above. Lymph: Unremarkable. Peritoneum: Unremarkable. A small amount of upper abdominal pneumoperitoneum is present and likely related to recent surgery. Trace pelvic ascites is present. Pelvis: The bladder is decompressed by a Welsh catheter and is difficult to evaluate. The patient is status post prior hysterectomy. Soft tissue: See above. Bone: Unremarkable for age. IMPRESSIONS: 1. Two surgical drains have been placed in the interval within the left upper quadrant. Medial to the cephalad most drain on image 31, there are new small amount of ill-defined densities lateral to the esophagojejunostomy staple line. Further evaluation with fluoroscopic contrast swallow studies recommended exclude extravasation from a leak at the anastomotic site. 2. Small moderate left pleural effusion is present and increased from prior exam. There is compressive atelectasis of most of the visualized left lower lobe. Mild discoid atelectasis is seen in the right lower lobe. 3. A small amount of upper abdominal pneumoperitoneum is present and likely related to recent surgery. Imaging follow-up as recommended above to exclude the less likely possibility of anastomotic leak. Dictated by Abhijeet Kapoor MD @ 01/11/2019 5:09:29 AM Please note that all CT scans at this facility use dose modulation, iterative reconstruction, and/or weight-based dosing when appropriate to reduce radiation dose to as low as reasonably achievable. Dictated by: Abhijeet Kapoor MD @ 01/11/2019 05:09:36 (Electronically Signed)
[2019-01-11] MEDS: Dextrose 5%-Lactated Ringers 1,000 ML IV SCH (05:53)
--- NOTE | 2019-01-11 07:42 | PCM.SURGPN ---
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 This issue was occurring prior to surgery as well.) - Review of Systems General: Denies: Fever, Chills Pulmonary: Denies: Shortness of Breath (Has some difficulty with taking big breaths), Cough Cardiovascular: Denies: Chest Pain, Dyspnea on Exertion, Orthopnea Gastrointestinal: Reports: Abdominal Pain (Worst in upper quadrants), Constipation (Hasn't had a BM for 3 days), Nausea (Some nausea with recovery from anesthesia. ). Denies: Flatus, Vomiting Genitourinary: Reports: No Symptoms (Still had vora in this morning) Skin: Reports: Diaphoresis (Episode of sweating yesterday evening lasting 20 min. Patient feels it may be related to not taking her Verapamil for 2 days which she usually takes for migraines.) - Patient Data Vitals - Most Recent: Last Vital Signs Temp 35.2 C 01/11/19 07:00 Pulse 97 01/11/19 07:00 Resp 18 01/11/19 07:00 BP 119/70 01/11/19 07:00 Pulse Ox 97 01/11/19 07:18 Weight - Most Recent: 82.735 kg I&O - Last 24 Hours: Intake & Output 01/10/19 01/11/19 01/11/19 22:59 06:59 14:59 Intake Total 1561 2354 Output Total 445 740 Balance 1116 1614 Lab Results Last 24 Hrs: Laboratory Results - last 24 hr 01/10/19 01/10/19 01/11/19 Range/Units 07:44 08:36 04:00 WBC 29.8 H (4.5-11.0) K/uL RBC 3.91 (3.30-5.50) M/uL Hgb 11.6 L (12.0-15.0) g/dL Hct 35.1 L (36.0-48.0) % MCV 90 (80-98) fL MCH 30 (27-31) pg MCHC 33 (32-36) % Plt Count 121 L (150-400) K/uL Neut % (Auto) (36-66) % Lymph % (Auto) (24-44) % [place] % (Auto) (2-6) % Eos % (Auto) (2-4) % Baso % (Auto) (0-1) % Sodium 141 (140-148) mmol/L Potassium 3.3 L (3.6-5.2) mmol/L Chloride 103 (100-108) mmol/L Carbon Dioxide 30 (21-32) mmol/L Anion Gap 11.3 (5.0-14.0) mmol/L BUN 5 L D (7-18) mg/dL Creatinine 0.6 (0.6-1.0) mg/dL Est Cr Clr Drug Dosing 101.00 mL/min Estimated GFR (MDRD) > 60 (>60) Glucose 144 H (74-106) mg/dL Calcium 8.7 (8.5-10.1) mg/dL Phosphorus 2.3 L (2.5-4.9) mg/dL Magnesium 1.5 L (1.8-2.4) mg/dL Total Bilirubin 0.2 D (0.2-1.0) mg/dL AST 15 (15-37) U/L ALT 20 (12-78) U/L Alkaline Phosphatase 74 (46-116) U/L Total Protein 5.6 L (6.4-8.2) g/dL Albumin 2.1 L (3.4-5.0) g/dL Globulin 3.5 (2.3-3.5) g/dL Albumin/Globulin Ratio 0.6 L (1.2-2.2) Amylase 16 L (25-115) U/L Lipase 76 (73-393) U/L Blood Type A POSITIVE Gel Antibody Screen Negative Crossmatch See Detail 01/11/19 Range/Units 04:45 WBC 20.6 H (4.5-11.0) K/uL RBC 3.11 L (3.30-5.50) M/uL Hgb 9.1 L D (12.0-15.0) g/dL Hct 28.3 L (36.0-48.0) % MCV 91 (80-98) fL MCH 29 (27-31) pg MCHC 32 (32-36) % Plt Count 161 (150-400) K/uL Neut % (Auto) 85 H (36-66) % Lymph % (Auto) 3 L (24-44) % [place] % (Auto) 12 H (2-6) % Eos % (Auto) 0 L (2-4) % Baso % (Auto) 0 (0-1) % Sodium (140-148) mmol/L Potassium (3.6-5.2) mmol/L Chloride (100-108) mmol/L Carbon Dioxide (21-32) mmol/L Anion Gap (5.0-14.0) mmol/L BUN (7-18) mg/dL Creatinine (0.6-1.0) mg/dL Est Cr Clr Drug Dosing mL/min Estimated GFR (MDRD) (>60) Glucose (74-106) mg/dL Calcium (8.5-10.1) mg/dL Phosphorus (2.5-4.9) mg/dL Magnesium (1.8-2.4) mg/dL Total Bilirubin (0.2-1.0) mg/dL AST (15-37) U/L ALT (12-78) U/L Alkaline Phosphatase (46-116) U/L Total Protein (6.4-8.2) g/dL Albumin (3.4-5.0) g/dL Globulin (2.3-3.5) g/dL Albumin/Globulin Ratio (1.2-2.2) Amylase (25-115) U/L Lipase (73-393) U/L Blood Type Gel Antibody Screen Crossmatch Ej Results Last 24 Hrs: Microbiology 01/10/19 07:39 Gram Stain - Final Abdominal Fluid - Drainage Wound Culture - Preliminary Anaerobic Culture - Preliminary NO GROWTH AFTER 1 DAY 01/10/19 07:39 Gram Stain - Final Abdomen - Abscess Wound Culture - Preliminary Anaerobic Culture - Preliminary NO GROWTH AFTER 1 DAY Med Orders - Current: Current Medications Cyanocobalamin (Vitamin B12) 1,000 mcg IM ONETIME ONE Stop: 01/12/19 09:01 Diphenhydramine HCl (Benadryl) 50 mg IVPUSH Q4H PRN PRN Reason: ITCHING Hydromorphone HCl (Dilaudid Refuge Manager 15 Mg In Ns 30 Ml) 0 mg IV ASDIRECTED PRN; Protocol PRN Reason: Pain Last Admin: 01/10/19 14:56 Dose: 15 mg Hydroxyzine HCl (Vistaril) 100 mg IM Q4H PRN PRN Reason: pain Lidocaine HCl/Dextrose (Lidocaine 2 Gm/D5w 500 Ml) 2 gm in 500 mls @ 15 mls/hr IV .Q24H [facility] Stop: 01/11/19 10:00 Last Admin: 01/10/19 10:38 Dose: 1 mg/min, 15 mls/hr Meropenem 500 mg/ Sodium (Chloride) 50 mls @ 100 mls/hr IV Q6H [facility] Last Admin: 01/11/19 04:48 Dose: 100 mls/hr Aztreonam 1 gm/ Sodium (Chloride) 50 mls @ 100 mls/hr IV Q8H [facility] Last Admin: 01/11/19 01:14 Dose: 100 mls/hr Dextrose/Lactated Ringer's (Dextrose 5%-Lactated Ringers) 1,000 mls @ 175 mls/ hr IV ASDIRECTED [facility] Last Admin: 01/11/19 05:53 Dose: 175 mls/hr Multivitamins/Minerals 10 ml/Thiamine HCl 200 mg/ Chromium/Copper/Manganese/ Seleni/Zn 1 ml/ Dextrose/Lactated Ringer's 1,013 mls @ 174.999 mls/hr IV DAILY@ 1600 [facility] Last Admin: 01/10/19 17:14 Dose: 174.999 mls/hr Labetalol HCl (Normodyne) 5 mg IVPUSH Q5M PRN PRN Reason: SBP over 160 OR DBP over 95 Metoclopramide HCl (Reglan) 10 mg IVPUSH Q6H PRN PRN Reason: NAUSEA NOT CONTROL BY ZOFRAN Miscellaneous Information (Remove Patch) 1 ea TRDERM ONETIME ONE Stop: 01/12/19 10:01 Naloxone HCl (Narcan) 0.1 mg IVPUSH Q2M PRN PRN Reason: Respiratory Distress Scopolamine Patch (Check) 1 each TOP DAILY [facility] Stop: 01/12/19 10:45 Ondansetron HCl (Zofran) 4 mg IVPUSH Q4H PRN PRN Reason: Nausea/Vomiting Pantoprazole Sodium (Protonix Iv) 40 mg IVPUSH Q24H [facility] Last Admin: 01/10/19 11:33 Dose: 40 mg Discontinued Medications Ropivacaine 41 ml/Dexamethasone 8 mg/Epinephrine HCl 0.4 mg/ Sodium Chloride 36.6 ml 0 ml NERVRT ASDIRECTED [facility] Last Admin: 01/10/19 08:04 Dose: 80 syringe Dexamethasone (Dexamethasone) Confirm Administered Dose 4 mg .ROUTE .STK-MED ONE Stop: 01/10/19 06:47 Fentanyl (Sublimaze) Confirm Administered Dose 250 mcg .ROUTE .STK-MED ONE Stop: 01/10/19 06:47 Fentanyl (Sublimaze) Confirm Administered Dose 250 mcg .ROUTE .STK-MED ONE Stop: 01/10/19 07:55 Fentanyl (Sublimaze) 50 mcg IVPUSH ONETIME ONE Stop: 01/10/19 08:41 Last Admin: 01/10/19 08:49 Dose: 50 mcg Fentanyl (Sublimaze) 50 mcg IVPUSH ONETIME ONE Stop: 01/10/19 09:02 Last Admin: 01/10/19 09:06 Dose: 50 mcg Glycopyrrolate (Robinul) Confirm Administered Dose 1 mg .ROUTE .STK-MED ONE Stop: 01/10/19 06:47 Hydromorphone HCl (Dilaudid) 1 mg IVPUSH ONETIME ONE Stop: 01/09/19 21:35 Last Admin: 01/09/19 21:41 Dose: 1 mg Hydroxyzine HCl (Vistaril) 75 mg IM ONETIME ONE Stop: 01/10/19 08:41 Last Admin: 01/10/19 08:50 Dose: 75 mg Acetaminophen 1,000 mg/ Premix 100 mls @ 400 mls/hr IV NOW ONE Stop: 01/09/19 22:44 Last Admin: 01/09/19 23:25 Dose: 400 mls/hr Acetaminophen 1,000 mg/ Premix 100 mls @ 400 mls/hr IV NOW ONE Stop: 01/10/19 04:44 Last Admin: 01/10/19 04:23 Dose: 400 mls/hr Dextrose/Lactated Ringer's (Dextrose 5%-Lactated Ringers) 1,000 mls @ 150 mls/ hr IV ASDIRECTED [facility] Last Admin: 01/10/19 05:36 Dose: 150 mls/hr Meropenem 500 mg/ Sodium (Chloride) 50 mls @ 100 mls/hr IV Q6H [facility] Last Admin: 01/10/19 04:14 Dose: 100 mls/hr Ketamine HCl 50 mg/ Sodium (Chloride) 50 mls @ 15.6 mls/hr IV ASDIRECTED [facility] Tranexamic Acid 1,000 mg/ (Sodium Chloride) 60 mls @ 240 mls/hr IV Q3H [facility] Stop: 01/10/19 11:14 Last Admin: 01/10/19 11:38 Dose: 240 mls/hr Lactated Ringer's (Ringers, Lactated) Confirm Administered Dose 1,000 mls @ as directed .ROUTE .STK-MED ONE Stop: 01/10/19 07:39 Aztreonam 1 gm/ Sodium (Chloride) 50 mls @ 100 mls/hr IV ONETIME ONE Stop: 01/10/19 08:59 Last Admin: 01/10/19 08:40 Dose: 100 mls/hr Acetaminophen 1,000 mg/ Premix 100 mls @ 400 mls/hr IV NOW ONE Stop: 01/10/19 10:44 Last Admin: 01/10/19 10:53 Dose: 400 mls/hr Sodium Chloride (Normal Saline) 78 mls @ 3.5 mls/sec IV ASDIRECTED STA Stop: 01/11/19 03:56 Last Admin: 01/11/19 06:10 Dose: Not Given Iohexol (Omnipaque) 20 ml PO ONETIME ONE Stop: 01/11/19 03:17 Last Admin: 01/11/19 04:14 Dose: 20 ml Iopamidol (Isovue-300 (61%)) 124 ml IV . DIRECTED [facility] Stop: 01/11/19 03:55 Last Admin: 01/11/19 06:10 Dose: Not Given Meropenem (Merrem) Confirm Administered Dose 500 mg .ROUTE .STK-MED ONE Stop: 01/10/19 06:09 Last Admin: 01/10/19 07:00 Dose: 500 mg Naloxone HCl (Narcan) 0.4 mg IVPUSH Q2M PRN PRN Reason: Respiratory Distress Neostigmine Methylsulfate (Neostigmine) Confirm Administered Dose 5 mg .ROUTE .STK-MED ONE Stop: 01/10/19 06:47 Ondansetron HCl (Zofran) Confirm Administered Dose 4 mg .ROUTE .STK-MED ONE Stop: 01/10/19 06:47 Pharmacy Consult (Consult To Pharmacy) 1 each .XX ASDIRECTED [facility] Stop: 01/10/19 10:31 Propofol (Diprivan 20 Ml) Confirm Administered Dose 200 mg .ROUTE .STK-MED ONE Stop: 01/10/19 06:47 Rocuronium [place] (Zemuron) Confirm Administered Dose 50 mg .ROUTE .STK-MED ONE Stop: 01/10/19 06:47 Scopolamine (Transderm-Scop) Confirm Administered Dose 1.5 mg .ROUTE .STK-MED ONE Stop: 01/10/19 07:09 Succinylcholine Chloride (Quelicin) Confirm Administered Dose 200 mg .ROUTE .STK -MED ONE Stop: 01/10/19 06:47 - Exam Wound/Incisions: Healing Well, Dressing Dry and Intact Quality Assessment: Urine Catheter General: Alert, Oriented, Cooperative, No Acute Distress Lungs: Clear to Auscultation, Normal Respiratory Effort (Unable to take a big breath) Cardiovascular: Regular Rate, Regular Rhythm GI/Abdominal Exam: Normal Bowel Sounds, Soft, Tender Psy/Mental Status: Alert, Normal Affect, Normal Mood - Problem List Review Problem List Initiated/Reviewed/Updated: Yes - My Orders Last 24 Hours: Active Orders 24 hr Category Date Time Status Ambulate [RC] ASDIRECTED Care 01/10/19 10:20 Active Cardiac Monitoring Discontinue [RC] Click to Edit Care 01/11/19 09:00 Active Cardiac Monitoring [RC] .As Directed Care 01/10/19 10:20 Active Communication Order [RC] ROUTINE Care 01/10/19 10:20 Active Communication Order [RC] ROUTINE Care 01/10/19 10:33 Active Dorsiflex/Plantar flex x 10 [RC] QSHIFT Care 01/10/19 10:20 Active Drain Management [RC] ASDIRECTED Care 01/10/19 10:20 Active Head of Bed Elevation [RC] CONTINUOUS Care 01/10/19 10:20 Active Insert Urinary Catheter [OM.PC] Per Unit Routine Care 01/10/19 10:20 Ordered Intake and Output [RC] ASDIRECTED Care 01/10/19 10:20 Active Notify Provider Intake and Out [RC] ASDIRECTED Care 01/10/19 10:20 Active Notify Provider [RC] PRN Care 01/10/19 10:20 Active Oxygen Therapy [RC] ASDIRECTED Care 01/10/19 10:20 Active Pneumonia Education [RC] UPON Care 01/10/19 10:20 Active Pulse Oximetry [RC] ASDIRECTED Care 01/10/19 10:20 Active RT BiPAP/CPAP [RC] ASDIRECTED Care 01/10/19 10:20 Active RT Incentive Spirometry [RC] ASDIRECTED Care 01/10/19 10:20 Active RT Incentive Spirometry [RC] Q1HWA Care 01/10/19 10:20 Active Turn, Cough, Deep Breathe [RC] Q1HWA Care 01/10/19 10:20 Active Up to Chair [RC] TIDMEALS Care 01/10/19 10:20 Active Urinary Catheter Assessment [RC] ASDIRECTED Care 01/10/19 10:26 Active Vital Signs [RC] PER UNIT ROUTINE Care 01/10/19 10:20 Active Consult to Bariatric Services [CONS] Routine Cons 01/10/19 10:20 Active Consult to Technical Service Specialist [CONS] Routine Cons 01/10/19 10:20 Active Respiratory Care Assess and Treatment [CONS] Routine Cons 01/10/19 10:20 Active CULTURE ANAEROBIC [RM] Routine Lab 01/10/19 07:39 Results CULTURE ANAEROBIC [RM] Routine Lab 01/10/19 07:39 Results CULTURE WOUND + SMEAR [RM] Routine Lab 01/10/19 07:39 Results CULTURE WOUND + SMEAR [RM] Stat Lab 01/10/19 07:39 Results RED BLOOD CELLS LP [BBK] Routine Lab 01/10/19 07:44 Results TYPE AND SCREEN [BBK] Routine Lab 01/10/19 07:44 Results Aztreonam [Azactam] 1 gm Med 01/10/19 17:00 Active Sodium Chloride 0.9% [Normal Saline] 50 ml IV Q8H Cyanocobalamin (Vitamin B12) [Vitamin B12] Med 01/12/19 09:00 Once 1,000 mcg IM ONETIME ONE Dextrose 5%-Lactated Ringers 1,000 ml Med 01/10/19 10:45 Active IV ASDIRECTED Labetalol [Normodyne] Med 01/10/19 10:44 Active 5 mg IVPUSH Q5M PRN Lidocaine 0.4%/D5W [Lidocaine 2 GM/D5W 500 ML] Med 01/10/19 08:00 Active 2 gm in 500 ml IV 1 mg/min MVI, Adult with Vitamin K [Infuvite Adult] 10 ml Med 01/10/19 16:00 Active Thiamine [Vitamin B-1] 200 mg Chromium/Copper/Russell/Selen/Zn [Multitrace-5 Concentrate ] 1 ml Dextrose 5%-Lactated Ringers 1,000 ml IV DAILY@1600 Meropenem [Merrem] 500 mg Med 01/10/19 11:30 Active Sodium Chloride 0.9% [Normal Saline] 50 ml IV Q6H Metoclopramide [Reglan] Med 01/10/19 10:44 Active 10 mg IVPUSH Q6H PRN Naloxone [Narcan] Med 01/10/19 08:00 Active 0.1 mg IVPUSH Q2M PRN Non-Formulary Medication [NF Drug] Med 01/10/19 10:44 Active 1 each TOP DAILY Pantoprazole [ProTONIX IV] Med 01/10/19 11:30 Active 40 mg IVPUSH Q24H Remove Patch Med 01/12/19 10:00 Once 1 ea TRDERM ONETIME ONE diphenhydrAMINE [Benadryl] Med 01/10/19 10:44 Active 50 mg IVPUSH Q4H PRN hydrOXYzine HCl [Vistaril] Med 01/10/19 10:44 Active 100 mg IM Q4H PRN Abdominal Binder [OM.PC] Routine Oth 01/10/19 10:20 Ordered Oral Care [OM.PC] BID Oth 01/10/19 10:30 Ordered Oral Care [OM.PC] BID Oth 01/11/19 10:30 Ordered PT Screening [OM.PC] Routine Oth 01/10/19 10:20 Active Sequential Compression Device [OM.PC] Routine Oth 01/10/19 10:20 Ordered Specialty Bed [OM.PC] Routine Oth 01/10/19 10:20 Ordered Resuscitation Status Routine Resus Stat 01/10/19 10:20 Ordered Medication Orders Cyanocobalamin (Vitamin B12) 1,000 mcg IM ONETIME ONE Stop: 01/12/19 09:01 Diphenhydramine HCl (Benadryl) 50 mg IVPUSH Q4H PRN PRN Reason: ITCHING Hydromorphone HCl (Dilaudid Refuge Manager 15 Mg In Ns 30 Ml) 0 mg IV ASDIRECTED PRN; Protocol PRN Reason: Pain Last Admin: 01/10/19 14:56 Dose: 15 mg Admin: 01/09/19 22:49 Dose: 15 mg Hydroxyzine HCl (Vistaril) 100 mg IM Q4H PRN PRN Reason: pain Lidocaine HCl/Dextrose (Lidocaine 2 Gm/D5w 500 Ml) 2 gm in 500 mls @ 15 mls/hr IV .Q24H [facility] Stop: 01/11/19 10:00 Last Admin: 01/10/19 10:38 Dose: 1 mg/min, 15 mls/hr Meropenem 500 mg/ Sodium (Chloride) 50 mls @ 100 mls/hr IV Q6H [facility] Last Admin: 01/11/19 04:48 Dose: 100 mls/hr Admin: 01/10/19 23:20 Dose: 100 mls/hr Admin: 01/10/19 17:32 Dose: 100 mls/hr Admin: 01/10/19 12:25 Dose: 100 mls/hr Aztreonam 1 gm/ Sodium (Chloride) 50 mls @ 100 mls/hr IV Q8H [facility] Last Admin: 01/11/19 01:14 Dose: 100 mls/hr Admin: 01/10/19 17:17 Dose: 100 mls/hr Dextrose/Lactated Ringer's (Dextrose 5%-Lactated Ringers) 1,000 mls @ 175 mls/ hr IV ASDIRECTED [facility] Last Admin: 01/11/19 05:53 Dose: 175 mls/hr Infusion: 01/11/19 05:10 Dose: 175 mls/hr Admin: 01/10/19 23:27 Dose: 175 mls/hr Infusion: 01/10/19 19:34 Dose: 175 mls/hr Admin: 01/10/19 13:51 Dose: 175 mls/hr Multivitamins/Minerals 10 ml/Thiamine HCl 200 mg/ Chromium/Copper/Manganese/ Seleni/Zn 1 ml/ Dextrose/Lactated Ringer's 1,013 mls @ 174.999 mls/hr IV DAILY@ 1600 [facility] Last Admin: 01/10/19 17:14 Dose: 174.999 mls/hr Labetalol HCl (Normodyne) 5 mg IVPUSH Q5M PRN PRN Reason: SBP over 160 OR DBP over 95 Metoclopramide HCl (Reglan) 10 mg IVPUSH Q6H PRN PRN Reason: NAUSEA NOT CONTROL BY ZOFRAN Miscellaneous Information (Remove Patch) 1 ea TRDERM ONETIME ONE Stop: 01/12/19 10:01 Naloxone HCl (Narcan) 0.1 mg IVPUSH Q2M PRN PRN Reason: Respiratory Distress Scopolamine Patch (Check) 1 each TOP DAILY [facility] Stop: 01/12/19 10:45 Ondansetron HCl (Zofran) 4 mg IVPUSH Q4H PRN PRN Reason: Nausea/Vomiting Pantoprazole Sodium (Protonix Iv) 40 mg IVPUSH Q24H [facility] Last Admin: 01/10/19 11:33 Dose: 40 mg - Assessment Assessment (Free Text/Narrative):: Elaine Wheeler is a 43 yo female post op day 1 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 She appears to be feeling much better with relief of her associated shoulder pain but continues to have abdominal pain likely due to normal post op pain. She is getting blood/serosanguineous drainage from her REINA drain; no purulent discharge. She continues to have an elevated WBC (>20,000) which is down slightly from 29,000 yesterday. She should be monitored closely for sepsis but the decrease WBC is encouraging that this is still from her abscess that was removed and we hope to see WBC continue to decrease. It is also concerning that she has not had a BM for 3 days w/o flatus. This could be due to the abscess causing inflammation and constriction around the EJ junction. We would like to see a normal BM before discharge. Her diaphoretic reaction could be from her stopping verapamil as she suggests. If she continues to have these episodes or experiences chest pain, nausea, or SOB she should have a cardiac work up. - Plan Plan (Free Text/Narrative):: 1. Post Splenectomy -Blue ice -Clear liquid diet -Clear protein drink -If Hgb drops below 8.5 notify provider -CRISTINA Vora 2. Sepsis risk -CBC in the morning 3. Hypophosphatemia -K+ phosphate -CMP in the morning 4. Hypomagnesemia -Magnesium sulfate -CMP in the morning
[2019-01-11] MEDS: Magnesium Sulfate/Water 2 GM in Premix Bag 1 BAG IV SCH ×3 (08:41→20:05)
[2019-01-11] MEDS: SCOPOLAMINE PATCH CHECK TOP SCH (09:44)
[2019-01-11] MEDS: Potassium Phosphates 20 MMOLE in Sodium Chloride 0.9% 250 ML IV SCH ×3 (10:46→17:01)
[2019-01-11] MEDS: Lidocaine 0.4%/D5W 2 GM/500 ML BAG IV SCH (12:28)
[2019-01-11] MEDS: Pantoprazole 40 MG Vial IVPUSH SCH (12:32)
[2019-01-11] MEDS: MVI, Adult with Vitamin K 10 ML, Thiamine 200 MG, Chromium/Copper/Mang/Selen/Zn 1 ML in... IV SCH ×4 (13:42)
[2019-01-11] MEDS: hydrOXYzine HCl 100 MG/2 ML SDV IM PRN ×2 (13:51→23:15)
[2019-01-11] MEDS ORDERED: MVI, Adult with Vitamin K 10 ML, Thiamine 200 MG, Chromium/Copper/Mang/Selen/Zn 1 ML in... IV SCH ×4 (16:00)
[2019-01-11] MEDS: Cyclobenzaprine 10 MG Tab PO PRN (17:40)
[2019-01-11] MEDS: HYDROmorphone/Normal Saline 15 MG/30 ML PCA IV PRN (18:15)
[2019-01-12] MEDS: Dextrose 5%-Lactated Ringers 1,000 ML IV SCH (00:34)
[2019-01-12] MEDS: Magnesium Sulfate/Water 2 GM in Premix Bag 1 BAG IV SCH ×4 (01:47→20:35)
[2019-01-12] MEDS: Cyclobenzaprine 10 MG Tab PO PRN ×2 (01:47→20:02)
[2019-01-12] MEDS: Meropenem 500 MG in Sodium Chloride 0.9% 50 ML IV SCH ×4 (05:33→23:14)
[2019-01-12] MEDS ORDERED: Magnesium Hydroxide 400 MG/5 ML Susp 30 ML Cup PO PRN (07:58)
[2019-01-12] MEDS: Bisacodyl 5 MG Tab PO SCH ×2 (08:45→20:01)
[2019-01-12] MEDS: SCOPOLAMINE PATCH CHECK TOP SCH (08:45)
[2019-01-12] MEDS ORDERED: Cyanocobalamin (Vitamin B12) 1,000 MCG/ML SDV IM ONE (09:00)
[2019-01-12] MEDS: Potassium Phosphates 22.5 MMOLE in Sodium Chloride 0.9% 250 ML IV SCH ×2 (09:00→13:29)
[2019-01-12] MEDS: Pantoprazole 40 MG Delayed-Release Granules 1 Packet PO SCH (11:31)
[2019-01-12] MEDS: MVI, Adult with Vitamin K 10 ML, Thiamine 200 MG, Chromium/Copper/Mang/Selen/Zn 1 ML in... IV SCH ×4 (17:51)
[2019-01-13] MEDS: Magnesium Sulfate/Water 2 GM in Premix Bag 1 BAG IV SCH ×4 (02:07→20:34)
[2019-01-13] MEDS: Meropenem 500 MG in Sodium Chloride 0.9% 50 ML IV SCH ×4 (05:25→22:46)
[2019-01-13] MEDS: Acetaminophen/oxyCODONE 325-5 MG Tab PO PRN ×4 (05:26→20:12)
[2019-01-13] MEDS: Bisacodyl 5 MG Tab PO SCH ×2 (08:03→20:05)
[2019-01-13] MEDS: Dextrose 5%-Lactated Ringers 1,000 ML IV SCH (08:21)
[2019-01-13] MEDS ORDERED: Dextrose 5%-Lactated Ringers 1,000 ML IV SCH (09:00)
[2019-01-13] MEDS: Celecoxib 200 MG Cap PO SCH (10:34)
[2019-01-13] MEDS: Levothyroxine 100 MCG Tab PO SCH (10:34)
[2019-01-13] MEDS: Gabapentin 300 MG Cap PO SCH ×3 (10:34→20:06)
[2019-01-13] MEDS: Verapamil 80 MG Tab PO SCH ×3 (10:35→20:05)
[2019-01-13] MEDS: Pantoprazole 40 MG Delayed-Release Granules 1 Packet PO SCH (12:05)
[2019-01-13] MEDS ORDERED: MVI, Adult with Vitamin K 10 ML, Thiamine 200 MG, Chromium/Copper/Mang/Selen/Zn 1 ML in... IV SCH ×4 (16:00)
[2019-01-13] MEDS: Zonisamide 50 MG Capsule PO SCH (20:06)
[2019-01-14] MEDS: Acetaminophen/oxyCODONE 325-5 MG Tab PO PRN ×5 (02:02→23:05)
[2019-01-14] MEDS: Magnesium Sulfate/Water 2 GM in Premix Bag 1 BAG IV SCH (02:03)
[2019-01-14] MEDS: Meropenem 500 MG in Sodium Chloride 0.9% 50 ML IV SCH ×2 (05:21→11:34)
[2019-01-14] MEDS: Levothyroxine 100 MCG Tab PO SCH (07:47)
[2019-01-14] MEDS: Verapamil 80 MG Tab PO SCH ×3 (09:31→20:42)
[2019-01-14] MEDS: Bisacodyl 5 MG Tab PO SCH ×2 (09:32→20:42)
[2019-01-14] MEDS: Gabapentin 300 MG Cap PO SCH ×3 (09:33→20:42)
[2019-01-14] MEDS: Celecoxib 200 MG Cap PO SCH (09:33)
--- NOTE | 2019-01-14 09:42 | PN ---
DATE OF SERVICE: 01/14/2019 SUBJECTIVE: Elaine had 2 bowel movements. Vital signs have been stable. Oral intake 850. Her REINA drains have put out 25 and 115 of a light red drainage. Urine output was 4800. She is on a step 1 gastric bypass diet. REVIEW OF SYSTEMS: Remainder of review of systems negative for any pertinent positives and negatives. OBJECTIVE: GENERAL: Elaine Wheeler is a pleasant 43-year-old female. She is alert, orientated. VITAL SIGNS: TPR is 96.5, 84, 16, blood pressure 99/55. HEENT: Negative. NECK: Supple. HEART: Regular rate and rhythm. LUNGS: Clear. ABDOMEN: Dressings dry and intact. Aquacel dressing is on. REINA drains intact. Abdominal binder is on. EXTREMITIES: Without peripheral edema. ASSESSMENT: Exploratory laparotomy, drainage of left subphrenic and intraabdominal abscess, splenectomy, suture site probable leak at the esophageal jejunostomy junction for separate intraabdominal and left subphrenic abscess, subphrenic abscess adherent to splenic capsule and probable leak at esophageal jejunostomy junction. Date of surgery: 01/10/2019. PLAN: 1. Step 2 gastric bypass diet with no cereal. 2. Aquacel dressing may be removed today. 3. We will evaluate p.r.n. or in a.m. 4. Planned discharge in a.m. Thalia Horowitz PA-C /[id number]
[2019-01-14] MEDS: Pantoprazole 40 MG Delayed-Release Granules 1 Packet PO SCH (11:37)
--- NOTE | 2019-01-14 13:25 | PN ---
DATE OF SERVICE: 01/12/2019 SUBJECTIVE: The patient has been afebrile with stable vital signs. Still fairly weak and for the pain, we will leave the PUMP OILER going for today. Otherwise, her hemoglobin is 8.5. We will give her 1 unit of packed RBCs. Potassium already low. We will give her some additional K-Phos today and begin stimulation. We will check REINA drains for an amylase content given the extent of splenectomy and probable, otherwise, minor manipulation of the pancreatic tail during the course of that procedure. The cultures are growing gram- positive rods. The Gram stain showed some gram-positive cocci and gram-negative rods, so leave the present antibiotics consisting of meropenem and Azactam in place for today. Davey Amato MD /[id number]
[2019-01-14] MEDS: Zonisamide 50 MG Capsule PO SCH (20:42)
[2019-01-15] MEDS: Acetaminophen/oxyCODONE 325-5 MG Tab PO PRN ×3 (03:05→11:23)
[2019-01-15] MEDS: Levothyroxine 100 MCG Tab PO SCH (06:56)
[2019-01-15] MEDS: Celecoxib 200 MG Cap PO SCH (09:20)
[2019-01-15] MEDS: Gabapentin 300 MG Cap PO SCH (09:20)
[2019-01-15] MEDS: Bisacodyl 5 MG Tab PO SCH (09:20)
[2019-01-15] MEDS: Verapamil 80 MG Tab PO SCH (09:25)
--- NOTE | 2019-01-15 11:01 | PN ---
DATE OF SERVICE: 01/13/2019 The patient has been afebrile with stable vital signs. The patient was switched over to oral Percocet this morning, which appears to be working well. We will restart her other pertinent oral medications, splitting and opening capsules as permissible, and otherwise continue step-2 diet, and we will have Dietary review that with her tomorrow. It is possible she could be ready for home tomorrow, depending on her overall status at that point. Davey Amato MD /[id number]
[2019-01-15] MEDS: Pantoprazole 40 MG Delayed-Release Granules 1 Packet PO SCH (11:27)
--- NOTE | 2019-01-15 14:03 | DISCH ---
FINAL DIAGNOSES: 1. Probable leak at esophagojejunostomy with separate intraabdominal and left subphrenic abscesses. 2. Subphrenic abscess cavity adherent to splenic capsule. 3. Splenectomy. 4. Status post esophagogastrectomy for obstruction and marked inflammation at gastrojejunostomy and proximal Rosina limb. 5. History of polycystic ovarian syndrome. 6. History of fibromyalgia. 7. History of treated hypothyroidism. 8. Acute blood loss anemia. OPERATIVE PROCEDURES: This was done on 01/10, exploratory laparotomy with: 1. Drainage of left subphrenic and separate left intraabdominal abscess. 2. Splenectomy. 3. Suture site of probable leak at esophagojejunostomy. SUMMARY: This is a 43-year-old status post previous recent operation and presented with an abscess in the area of the left upper quadrant. On final exploratory laparotomy, the patient had 2 separate abscesses, one in the left subphrenic area, and one in the more lateral left abdominal wall. These were both drained. The splenic capsule was essentially part of the subphrenic abscess cavity, and the capsule was adherent to the diaphragm which necessitating a splenectomy. The patient did receive one unit of packed RBCs postoperatively for blood loss anemia. The probable leak at the esophagojejunostomy was sutured and treated with fibrin sealant, and she has been tolerating a liquid diet since that time. She will be discharged home on a step-2 diet until the next appointment, which will be next Monday, with Thalia Horowitz in [facility]. We will check a CBC at that time and see where we are at the hemoglobin as well as make sure the platelet count is not exceeding a million, and also she will be getting her postsplenectomy immunizations at that time. The patient will be discharged home on her usual medications plus Percocet 5/325 one to two tablets q.4 hours p.r.n. pain, and the drains will be removed today. Davey Amato MD /[id number]
--- NOTE | 2019-01-15 14:15 | OR ---
DATE OF PROCEDURE: 01/10/2019 PREOPERATIVE DIAGNOSIS: Perisplenic abscess associated with possible leak at esophagojejunostomy. POSTOPERATIVE DIAGNOSES: 1. Separate intraabdominal and left subphrenic abscesses. 2. Subphrenic abscess cavity adherent to superior splenic capsule. 3. Probable leak at esophagojejunostomy. OPERATIVE PROCEDURE: Exploratory laparotomy with: 1. Drainage of left subphrenic abscess (39779). 2. Drainage of perisplenic intraabdominal abscess (75840). 3. 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 4. Suture of site of probable leak at esophagojejunostomy (47196). ANESTHESIA: General. CRIBBER: Thalia Horowitz PA-C and CATHI Martinez. 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 The patient initially has done well, but now presents with a several-day history of some left upper quadrant pain and then developing worsening pain and fever yesterday afternoon, presenting to the emergency room. CT scan was obtained, which showed an abscess cavity with some air bubbles in the left upper quadrant/perisplenic area. The patient was admitted overnight for hydration and initiation of antibiotics and is to undergo an exploratory laparotomy. The previous procedure was done as an open approach so we will proceed with an open approach in this case as well. Potential risks of the procedure including bleeding, infection, injury to the viscera in the area, the possibility that persistent leak may remain following the procedure, as well as possibility of cardiopulmonary, septic, or hemorrhagic complications leading to were discussed, and the patient wishes to proceed. DETAILS OF PROCEDURE: The patient was taken to the operating room, and after general endotracheal anesthesia was induced, a Welsh catheter was inserted and the abdomen prepped and draped. The previous upper midline incision was then reused and carried down through the skin, subcutaneous tissue, fascia, and peritoneum. Upon entering the peritoneal cavity, some loose adhesions between the omentum and midline incision were taken down and at that point bilateral subcostal transversus abdominis plane blocks were placed. There was an obvious area of firmness in the left upper quadrant both lateral to and superior to the spleen. Initially, the area lateral to the spleen was bluntly dissected away from the abdominal wall and an abscess cavity encountered there. Cultures of this were obtained. Superior to the spleen, there was a separate abscess cavity that was not evidently communicating with the more lateral perisplenic abscess cavity. This was taken down. It was noted that the spleen at this level was densely adherent to the diaphragm and was bluntly dissected into that area. Quite a bit of the superior splenic capsule was adherent to the diaphragm. The subphrenic abscess cavity was then drained. The patient was noted to have some significant bleeding and after a period of packing, the bleeding then continued from the area of the evulsion of the capsule. Given this, we elected to proceed with a splenectomy. The spleen was mobilized away from its diaphragmatic and pericolonic attachments and removed with a series of MIKAYLA marilee and specimen delivered from the field. At this point, the area was irrigated with antibiotic-containing saline solution. Patient had a tendency to lose it from some of the raw surfaces and was given tranexamic acid 1 g IV with planned followup dose in 3 hours. This resulted in very satisfactory appearing hemostasis. The area of the esophagogastric anastomosis was then inspected. There was a thin spot that appeared to probably be the source of leak and this was then sutured with 3 [id number] stitches of 3-0 Vicryl stitch. This was also then reinforced with fibrin sealant as was the area of the splenic hilum and division. At this point, additional antibiotics were placed for irrigation. Two Sebastien-Morgan drains were then placed, one across the splenic vessels at the end of the spleen and one adjacent to the esophagojejunostomy these were both taken off the left subcostal area. At that point, no further problems were noted. The midline fascia was then approximated with #2 Vicryl stitch with very little in the way of gross contamination of the anterior abdominal wall area and it was felt that we could close the skin reasonably safely in terms of infectious risk. Given this, after the facia closure with #2 Vicryl stitch, subcutaneous tissue approximated with some 3-0 Vicryl stitch, and subdermal layer of 4-0 Vicryl stitch was placed and marilee applied. Drains were sutured to skin with some 3-0 Vicryl stitch. The patient was taken to the recovery room in satisfactory condition. Physician clinical laboratory assistant, Thalia Horowitz, played an essential role in assisting in this case, helping to position the patient, retract structures as needed, as well as suturing and cutting sutures as indicated. Her presence improved the patient's safety and decreased operative time. Davey Amato MD /[id number]
== END 2019-01-15 12:30 | disposition home or self-care (01) | DRG 711 ==
LOC: JP.ED 21:00 → JP.MS 21:32
PROVIDERS: ADMIT Surgery; ATTEND Surgery
PROC: 0J9C0ZX Drainage of Pelvic Region Subcutaneous Tissue and Fascia, Open Approach, Diagnostic (ICD-10-PCS; principal; 2019-01-10)
PROC: 0W9G0ZX Drainage of Peritoneal Cavity, Open Approach, Diagnostic (ICD-10-PCS; 2019-01-10)
PROC: 07TP0ZZ Resection of Spleen, Open Approach (ICD-10-PCS; 2019-01-10)
PROC: 0DL Gastrointestinal System, Occlusion (ICD-10-PCS; 2019-01-10)
PROC: 0DL Gastrointestinal System, Occlusion (ICD-10-PCS; 2019-01-10)
PROC: 0DN Gastrointestinal System, Release (ICD-10-PCS; 2019-01-10)
PROC: 0DNA0ZZ Release Jejunum, Open Approach (ICD-10-PCS; 2019-01-10)
PROC: 30233N1 Transfusion of Nonautologous Red Blood Cells into Peripheral Vein, Percutaneous Approach (ICD-10-PCS; 2019-01-12)
DX: T81.43XA Infection following a procedure, organ and space surgical site, initial encounter (principal); K65.1 Peritoneal abscess; Y83.8 Other surgical procedures as the cause of abnormal reaction of the patient, or of later complication, without mention of misadventure at the time of the procedure; K91.89 Other postprocedural complications and disorders of digestive system; K59.00 Constipation, unspecified; E83.39 Other disorders of phosphorus metabolism; E83.42 Hypomagnesemia; D62 Acute posthemorrhagic anemia; E03.9 Hypothyroidism, unspecified; Z98.84 Bariatric surgery status; Z98.0 Intestinal bypass and anastomosis status; E53.8 Deficiency of other specified B group vitamins; G43.909 Migraine, unspecified, not intractable, without status migrainosus; R32 Unspecified urinary incontinence; K21.9 Gastro-esophageal reflux disease without esophagitis; H54.7 Unspecified visual loss; Z87.11 Personal history of peptic ulcer disease; Z90.710 Acquired absence of both cervix and uterus; M79.7 Fibromyalgia; E28.2 Polycystic ovarian syndrome
CPT/HCPCS: 36415; 36430; 74177; 80053; 82150; 82728; 83690; 83735; 83880; 84100; 85025; 85027; 86850; 86900; 86901; 86920; 86922; 87070; 87075; 87077; 87205; 88305; 94762; 99284; A9270-GY; C9113; J0131; J0171; J0330; J1100; J1170; J2001; J2185; J2405; J2704; J2710; J2795; J3010; J3410; J3411; J3420; J3475; J3490; J7042; J7050; J7120; P9016; Q9965

== ENCOUNTER 2019-01-25 13:34 | Emergency (ER) | payer BC ==
[2019-01-25] MEDS ORDERED: Sodium Chloride 0.9% 10 ML Syringe FLUSH PRN (14:12)
[2019-01-25] MEDS ORDERED: Lactated Ringers 1,000 ML IV SCH (14:15)
[2019-01-25] MEDS ORDERED: Prochlorperazine 10 MG/2 ML SDV IVPUSH ONE (14:41)
[2019-01-25] MEDS ORDERED: HYDROmorphone 0.5 MG/0.5 ML Syringe IVPUSH ONE ×2 (14:41→17:01)
--- NOTE | 2019-01-25 14:57 | EDM.PDOC ---
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 Patient presents with her mother at bedside whom is a nurse, with a fairly complex medical and surgical history. Patient had weight loss gastric bypass surgery in May 2018 at the outlying facility. Patient fortunately had complications with eating and had a NG tube for greater than 4 months. Patient's was seen by market manager and due to complications of concerns was referred to Dr. Amato locally for evaluation. Dr. Amato has taken on patient's complications. She had her most recent surgery on January 10 which was an exploratory laparotomy finding a left sub-nephric abscess, perisplenic intra-abdominal abscess, unfortunately due to bleeding and the infection splenectomy was also performed. Patient had a probable leak in the the esophagojejunostomy from her gastric bypass which was repaired. Patient was hospitalized and discharged last week Monday was doing fairly well with improving symptoms and WBC before discharge was 10.4. On Monday she received vaccinations which was medically warranted due to splenectomy. Patient started having a low-grade fevers on Monday 99 to 102 spoke with her mother regarding the fever. Patient continued to have fever throughout and this am of 99 to 103. Patient took on tablet of Percocet at 11am for pain which was helpful. Last meal was a protein shake at 10am. Patient contacted the surgical PA who works with Dr. Amato this morning. Recommended ER evaluation visit. Patient is having headaches which are waxing and waning in intensity but they are not new, worse or different than typical. Patient has left upper quadrant abdominal pain and pain with deep respiration in left lower chest and upper abdomen. Patient has general abdominal pain with ambulation. She had a normal bowel movement yesterday, denies blood or diarrhea. Patient denies any dysuria or urinary symptoms. Patient denies any rash or sores to skin. No abnormal vaginal discharge or lesions. Patient denies cough or upper respiratory tract symptoms. Left Middle Abdomen Pain Score (Numeric/FACES): 5 - Related Data Allergies Allergy/AdvReac Type Severity Reaction Status Date / Time No Known Allergies Allergy Verified 01/25/19 13:57 Home Meds: Home Meds Eletriptan HBr 40 mg PO Q2H PRN 12/14/18 [History] Gabapentin [Neurontin] 300 mg PO ASDIRECTED PRN 12/14/18 [History] Levothyroxine [Synthroid] 100 mcg PO ACBREAKFAST 12/14/18 [History] Omeprazole 20 mg PO DAILY 12/14/18 [History] Ondansetron [Zofran ODT] 4 mg PO Q8H PRN 12/14/18 [History] Promethazine [Phenergan] 25 mg PO QID PRN 12/14/18 [History] Verapamil [Calan] 80 mg PO TID 12/17/18 [History] buPROPion [Wellbutrin] 150 mg PO BID 12/19/18 [History] Acetaminophen [Tylenol] 650 mg PO Q6H cup 12/21/18 [Rx] Celecoxib [CeleBREX] 200 mg PO DAILY@0800 #14 cap 12/21/18 [Rx] Ondansetron [Zofran ODT] 4 mg PO Q4H PRN #30 tab.dis 12/21/18 [Rx] Zolpidem [Ambien] 5 mg PO BEDTIME PRN tablet 12/21/18 [Rx] Zonisamide 100 mg PO BEDTIME cap 12/21/18 [Rx] Acetaminophen/oxyCODONE [Percocet 325-5 MG] 1 - 2 each PO Q4H PRN #50 tab [Rx] Past Medical History HEENT History: Reports: Impaired Vision Gastrointestinal History: Reports: GERD, PUD, Other (See Below) Other Gastrointestinal History: nausea with eating Genitourinary History: Reports: Urinary Incontinence SHIPPING CHECKER History: Reports: Fibroids, Musculoskeletal History: Reports: Back Pain, Chronic, Other (See Below) Other Musculoskeletal History: whip lash Neurological History: Reports: Migraines Psychiatric History: Reports: Depression Endocrine/Metabolic History: Reports: Hypothyroidism, Obesity/BMI 30+ Hematologic History: Reports: B12 Deficiency, Blood Transfusion(s) - Infectious Disease History Infectious Disease History: Reports: Chicken Pox - Past Surgical History Head Surgeries/Procedures: Reports: None HEENT Surgical History: Reports: None, Adenoidectomy, Tonsillectomy GI Surgical History: Reports: Bariatric Procedure, EGD, Other (See Below) Other GI Surgeries/Procedures: spleenectomy Female Surgical History: Reports: Section, Hysterectomy, Other (See Below) Other Female Surgeries/Procedures: bladder stimulator Endocrine Surgical History: Reports: None Neurological Surgical History: Reports: Other (See Below) Other Neurological Surgeries/Procedures: ablation in spine after whip lash Musculoskeletal Surgical History: Reports: Other (See Below) Other Musculoskeletal Surgeries/Procedures:: muscle bx due to elevated ck Dermatological Surgical History: Reports: None Social & Family History - Family History Family Medical History: Noncontributory - Tobacco Use Smoking Status *Q: Never Smoker Second Hand Smoke Exposure: No - Caffeine Use Caffeine Use: Reports: None - Recreational Drug Use Recreational Drug Use: No ED ROS GENERAL - Review of Systems Review Of Systems: See Below Constitutional: Reports: Fever, Chills, Malaise, Decreased Appetite, Weight Loss (intentional with Gastric bypass) HEENT: Reports: No Symptoms Respiratory: Reports: Pleuritic Chest Pain. Denies: Shortness of Breath, Wheezing, Cough, Sputum, Hemoptysis Cardiovascular: Reports: No Symptoms. Denies: Chest Pain Endocrine: Reports: Fatigue GI/Abdominal: Reports: Abdominal Pain, Anorexia, Decreased Appetite. Denies: Constipation, Diarrhea, Nausea, Vomiting : Denies: Dysuria, Flank Pain, Frequency, Hematuria Musculoskeletal: Reports: No Symptoms Skin: Reports: No Symptoms Neurological: Reports: Headache, Weakness Psychiatric: Reports: No Symptoms Hematologic/Lymphatic: Reports: No Symptoms Immunologic: Reports: No Symptoms ED EXAM, GI/ABD - Physical Exam Exam: See Below Exam Limited By: No Limitations General Appearance: Alert, WD/WN, Moderate Distress Eyes: Bilateral: Normal Appearance, EOMI Ears: Normal External Exam, Hearing Grossly Normal Nose: Normal Inspection, Normal Mucosa, No Blood Throat/Mouth: Normal Inspection (Mouth and Lips are dry), Normal Lips, Normal Teeth, Normal Gums, Normal Oropharynx, Normal Voice, No Airway Compromise Head: Atraumatic, Normocephalic Neck: Normal Inspection, Supple, Non-Tender, Full Range of Motion Respiratory/Chest: No Respiratory Distress, Lungs Clear, Normal Breath Sounds, No Accessory Muscle Use, Chest Non-Tender Cardiovascular: Normal Peripheral Pulses, Regular Rate, Rhythm, No Edema, No Gallop, No JVD, No Murmur, No Rub (Tachycardia noted) GI/Abdominal Exam: No Distention, No Abnormal Bruit, No Mass, Pelvis Stable, Guarding (Left Upper abdomen with referred pain from left upper abdomen to right ), Tender (exquisetly tender left upper abdomen), Abnormal Bowel Sounds ( decreased Bowel sounds). No: Normal Bowel Sounds, Rigid Back Exam: Normal Inspection, Full Range of Motion, CVA Tenderness (L). No: CVA Tenderness (R) Extremities: Normal Inspection, Normal Range of Motion, Non-Tender, No Pedal Edema, Normal Capillary Refill. No: Pedal Edema, Joint Swelling Neurological: Alert, Oriented, CN II-XII Intact, Normal Cognition, Normal Gait, Normal Reflexes, No Motor/Sensory Deficits Psychiatric: Normal Affect, Normal Mood Skin Exam: Warm, Dry, Intact, Normal Color, No Rash Lymphatic: No Adenopathy EKG INTERPRETATION EKG Date: 01/25/19 Time: 14:48 Rhythm: Other (Sinus tachycardia flatten T wave lead II, III and aVF) Rate (Beats/Min): 124 [place]: Normal P-Wave: Present QRS: Normal ST-T: Other (Flatten T wave LEADS II, III and aVF and V1-6) QT: Prolonged (459) Comparison: NA - No Prior EKG EKG Interpretation Comments: Sinus tachycardia flatten T wave lead II, III and aVF in additional to V1-V6 Course - Vital Signs Last Recorded V/S: Last Vital Signs Temp 38.8 C H 01/25/19 17:02 Pulse 134 H 01/25/19 17:32 Resp 17 01/25/19 17:02 BP 150/79 H 01/25/19 17:32 Pulse Ox 98 01/25/19 17:32 - Orders/Labs/Meds Orders: Active Orders 24 hr Category Date Time Status Cardiac Monitoring [RC] .As Directed Care 01/25/19 14:12 Active EKG Documentation Completion [RC] ASDIRECTED Care 01/25/19 14:14 Active Peripheral IV Care [RC] . DIRECTED Care 01/25/19 14:14 Active Vital Signs [RC] PFP Care 01/25/19 16:58 Active CULTURE BLOOD [BC] Urgent Lab 01/25/19 14:25 Received CULTURE BLOOD [BC] Urgent Lab 01/25/19 14:40 Received CULTURE URINE [RM] Stat Lab 01/25/19 15:09 Received Blood Culture x2 Reflex Set [OM.PC] Urgent Oth 01/25/19 14:12 Ordered Peripheral IV Insertion Adult [OM.PC] Stat Oth 01/25/19 14:12 Ordered EKG 12 Lead [EK] Stat Ther 01/25/19 14:12 Ordered Labs: Laboratory Tests 01/25/19 01/25/19 01/25/19 Range/Units 14:12 14:18 14:37 WBC 32.6 H* (4.5-11.0) K/uL RBC 3.42 (3.30-5.50) M/uL Hgb 9.6 L (12.0-15.0) g/dL Hct 30.7 L (36.0-48.0) % MCV 90 (80-98) fL MCH 28 (27-31) pg MCHC 31 L (32-36) % Plt Count 525 H (150-400) K/uL Add Manual Diff Yes Neutrophils % (Manual) 81 H (36-66) % Band Neutrophils % 2 L (5-11) % Lymphocytes % (Manual) 6 L (24-44) % Monocytes % (Manual) 11 H (2-6) % D-Dimer, Quantitative (0.0-400.0) ng/mL Sodium 136 L (140-148) mmol/L Potassium 3.7 (3.6-5.2) mmol/L Chloride 99 L (100-108) mmol/L Carbon Dioxide 28 (21-32) mmol/L Anion Gap 12.7 (5.0-14.0) mmol/L BUN 12 D (7-18) mg/dL Creatinine 0.6 (0.6-1.0) mg/dL Est Cr Clr Drug Dosing 101.04 mL/min Estimated GFR (MDRD) > 60 (>60) Glucose 109 H (74-106) mg/dL Lactic Acid (0.4-2.0) mmol/L Calcium 9.2 (8.5-10.1) mg/dL Phosphorus (2.5-4.9) mg/dL Magnesium (1.8-2.4) mg/dL Total Bilirubin 0.4 (0.2-1.0) mg/dL AST 23 (15-37) U/L ALT 24 (12-78) U/L Alkaline Phosphatase 136 H D (46-116) U/L Troponin I (0.000-0.056) ng/mL C-Reactive Protein 24.19 H (0.0-0.3) mg/dL Total Protein 7.3 (6.4-8.2) g/dL Albumin 2.3 L (3.4-5.0) g/dL Globulin 5.0 H (2.3-3.5) g/dL Albumin/Globulin Ratio 0.5 L (1.2-2.2) Lipase 82 (73-393) U/L Urine Color Yellow Urine Appearance Slightly cloudy Urine pH 7.0 (4.5-8.0) Ur Specific [place] 1.015 (1.008-1.030) Urine Protein 30 H (NEGATIVE) mg/dL Urine Glucose (UA) Normal (NEGATIVE) mg/dL Urine Ketones 50 H (NEGATIVE) mg/dL Urine Occult Blood Negative (NEGATIVE) Urine Nitrite Negative (NEGATIVE) Urine Bilirubin Negative (NEGATIVE) Urine Urobilinogen Normal (NORMAL) mg/dL Ur Leukocyte Esterase Negative (NEGATIVE) Urine RBC Not seen (0-5) Urine WBC Not seen (0-5) Ur Epithelial Cells Moderate Amorphous Sediment Not seen Urine Bacteria Few Urine Mucus Few 01/25/19 01/25/19 01/25/19 Range/Units 14:37 14:43 15:10 WBC (4.5-11.0) K/uL RBC (3.30-5.50) M/uL Hgb (12.0-15.0) g/dL Hct (36.0-48.0) % MCV (80-98) fL MCH (27-31) pg MCHC (32-36) % Plt Count (150-400) K/uL Add Manual Diff Neutrophils % (Manual) (36-66) % Band Neutrophils % (5-11) % Lymphocytes % (Manual) (24-44) % Monocytes % (Manual) (2-6) % D-Dimer, Quantitative 3070 H (0.0-400.0) ng/mL Sodium (140-148) mmol/L Potassium (3.6-5.2) mmol/L Chloride (100-108) mmol/L Carbon Dioxide (21-32) mmol/L Anion Gap (5.0-14.0) mmol/L BUN (7-18) mg/dL Creatinine (0.6-1.0) mg/dL Est Cr Clr Drug Dosing mL/min Estimated GFR (MDRD) (>60) Glucose (74-106) mg/dL Lactic Acid 1.0 (0.4-2.0) mmol/L Calcium (8.5-10.1) mg/dL Phosphorus (2.5-4.9) mg/dL Magnesium (1.8-2.4) mg/dL Total Bilirubin (0.2-1.0) mg/dL AST (15-37) U/L ALT (12-78) U/L Alkaline Phosphatase (46-116) U/L Troponin I < 0.017 (0.000-0.056) ng/mL C-Reactive Protein (0.0-0.3) mg/dL Total Protein (6.4-8.2) g/dL Albumin (3.4-5.0) g/dL Globulin (2.3-3.5) g/dL Albumin/Globulin Ratio (1.2-2.2) Lipase (73-393) U/L Urine Color Urine Appearance Urine pH (4.5-8.0) Ur Specific [place] (1.008-1.030) Urine Protein (NEGATIVE) mg/dL Urine Glucose (UA) (NEGATIVE) mg/dL Urine Ketones (NEGATIVE) mg/dL Urine Occult Blood (NEGATIVE) Urine Nitrite (NEGATIVE) Urine Bilirubin (NEGATIVE) Urine Urobilinogen (NORMAL) mg/dL Ur Leukocyte Esterase (NEGATIVE) Urine RBC (0-5) Urine WBC (0-5) Ur Epithelial Cells Amorphous Sediment Urine Bacteria Urine Mucus 01/25/19 01/25/19 Range/Units 15:31 15:31 WBC (4.5-11.0) K/uL RBC (3.30-5.50) M/uL Hgb (12.0-15.0) g/dL Hct (36.0-48.0) % MCV (80-98) fL MCH (27-31) pg MCHC (32-36) % Plt Count (150-400) K/uL Add Manual Diff Neutrophils % (Manual) (36-66) % Band Neutrophils % (5-11) % Lymphocytes % (Manual) (24-44) % Monocytes % (Manual) (2-6) % D-Dimer, Quantitative (0.0-400.0) ng/mL Sodium (140-148) mmol/L Potassium (3.6-5.2) mmol/L Chloride (100-108) mmol/L Carbon Dioxide (21-32) mmol/L Anion Gap (5.0-14.0) mmol/L BUN (7-18) mg/dL Creatinine (0.6-1.0) mg/dL Est Cr Clr Drug Dosing mL/min Estimated GFR (MDRD) (>60) Glucose (74-106) mg/dL Lactic Acid (0.4-2.0) mmol/L Calcium (8.5-10.1) mg/dL Phosphorus 3.0 (2.5-4.9) mg/dL Magnesium 1.7 L (1.8-2.4) mg/dL Total Bilirubin (0.2-1.0) mg/dL AST (15-37) U/L ALT (12-78) U/L Alkaline Phosphatase (46-116) U/L Troponin I (0.000-0.056) ng/mL C-Reactive Protein (0.0-0.3) mg/dL Total Protein (6.4-8.2) g/dL Albumin (3.4-5.0) g/dL Globulin (2.3-3.5) g/dL Albumin/Globulin Ratio (1.2-2.2) Lipase (73-393) U/L Urine Color Urine Appearance Urine pH (4.5-8.0) Ur Specific [place] (1.008-1.030) Urine Protein (NEGATIVE) mg/dL Urine Glucose (UA) (NEGATIVE) mg/dL Urine Ketones (NEGATIVE) mg/dL Urine Occult Blood (NEGATIVE) Urine Nitrite (NEGATIVE) Urine Bilirubin (NEGATIVE) Urine Urobilinogen (NORMAL) mg/dL Ur Leukocyte Esterase (NEGATIVE) Urine RBC (0-5) Urine WBC (0-5) Ur Epithelial Cells Amorphous Sediment Urine Bacteria Urine Mucus Meds: Medications Discontinued Medications Generic Name Dose Route Start Last Admin Trade Name Freq PRN Reason Stop Dose Admin Acetaminophen 650 mg 01/25/19 17:30 01/25/19 18:23 Tylenol PO 01/25/19 17:31 650 mg NOW ONE Administration Hydromorphone HCl 0.5 mg 01/25/19 14:41 01/25/19 14:55 Dilaudid IVPUSH 01/25/19 14:42 0.5 mg ONETIME ONE Administration Hydromorphone HCl 0.5 mg 01/25/19 17:01 01/25/19 17:31 Dilaudid IVPUSH 01/25/19 17:02 0.5 mg ONETIME ONE Administration Lactated Ringer's 1,000 mls @ 1,000 mls/hr 01/25/19 14:15 01/25/19 14:22 Ringers, Lactated IV 1,000 mls/hr ASDIRECTED BAILEY Administration Sodium Chloride 100 mls @ 0 mls/hr 01/25/19 15:00 01/25/19 16:02 Normal Saline IV 01/25/19 20:00 3 mls/hr ASDIRECTED BAILEY Administration KVO Lactated Ringer's 1,000 mls @ 1,000 mls/hr 01/25/19 16:22 01/25/19 17:31 Ringers, Lactated IV 01/25/19 17:21 1,000 mls/hr BOLUS ONE Administration Piperacillin/Tazobactam/ 100 mls @ 200 mls/hr 01/25/19 17:00 01/25/19 17:03 Dextrose 4.5 gm/ Premix IV 01/25/19 17:29 200 mls/hr ONETIME ONE Administration Vancomycin HCl 2 gm/ Sodium 500 mls @ 250 mls/hr 01/25/19 17:15 01/25/19 16: 59 Chloride IV 01/25/19 19:14 250 mls/hr ONETIME ONE Administration Iohexol 10 ml 01/25/19 15:05 01/25/19 16:02 Omnipaque PO 01/25/19 15:06 10 ml ONETIME ONE Administration Iopamidol 100 ml 01/25/19 15:00 01/25/19 16:02 Isovue-370 (76%) IV 01/25/19 20:00 100 ml . DIRECTED BAILEY Administration Prochlorperazine Edisylate 5 - 10 mg 01/25/19 14:41 01/25/19 14:55 Compazine IVPUSH 01/25/19 14:42 5 mg ONETIME ONE Administration Sodium Chloride 10 ml 01/25/19 14:12 01/25/19 14:21 Saline Flush FLUSH 10 ml ASDIRECTED PRN Administration Keep Vein Open Sodium Chloride 10 ml 01/25/19 15:00 01/25/19 16:01 Saline Flush FLUSH 01/25/19 15:01 10 ml ONETIME ONE Administration - Radiology Interpretation Free Text/Narrative:: CT Chest Abd/Pelvis: ED MD and myself reviewed CT concerning fat stranding and fluid collection in left upper abdomen noted. Radiology report pending. 01/25/19 15:42 Radiology report: No PE. Multiple recurrent abscess left upper abdomen. Thick walled cavity air filled under left diaphragm 5.6 4.8 x 1.6. Secondary abscess left intra-abdominal cavity against with anterior abdominal wall measures 6.2 x 3.9 x 8+cm inferior. New when Compared from CT completed, January 11, 2019. Both amenable to percutaneous approach. 01/25/19 16:13 - Re-Assessments/Exams Free Text/Narrative Re-Assessment/Exam: Patient examination completed and septic work-up initiated. LR choosen due to Surgical history. Dr Amato called to get an update regarding patient's presentation. He requested CT with IV and po contrast per s/p bariatric protocol. 01/25/19 14:45 CT Chest Abd/Pelvis: ED MD and myself reviewed CT concerning fat stranding and fluid collection in left upper abdomen noted. Radiology report pending. 01/25/19 15:[address] Aamto whom consulted/evaluated patient and transfer to [facility] Requested to allow for Interventional Radiology to perform Percutaneous Drainage of Intra-abdominal Abscess along left anterior abdominal wall. Acceptance received from Hospitalist Service, [facility], pending Dr Amato speaking with special education resource room teacher General Surgeon at [facility] to ensure comfortable if further complications arise and surgical consultation/intervention needed. 01/25/19 17:19 Dr Amato called stating [facility] General Surgeon comfortable with transfer with direct admission to Surgical Progressive Unit. Zosyn and Vancomycin infusing without reaction. VS recheck: VS stable. Temp elevated Tylenol ordered. 01/25/19 17:30 Departure - Departure Time of Disposition: 17:00 Disposition: DC/Tfer to Acute Hospital 02 Clinical Impression: Abdominal pain - Discharge Information Referrals: Shawn Monroe MD [Primary Care Provider] - - My Orders Last 24 Hours: My Active Orders 01/25/19 14:12 Cardiac Monitoring [RC] .As Directed Blood Culture x2 Reflex Set [OM.PC] Urgent Peripheral IV Insertion Adult [OM.PC] Stat EKG 12 Lead [EK] Stat 01/25/19 14:14 EKG Documentation Completion [RC] ASDIRECTED Peripheral IV Care [RC] . DIRECTED 01/25/19 14:25 CULTURE BLOOD [BC] Urgent 01/25/19 14:40 CULTURE BLOOD [BC] Urgent 01/25/19 15:09 CULTURE URINE [RM] Stat 01/25/19 16:58 Vital Signs [RC] PFP - Assessment/Plan Last 24 Hours: My Active Orders 01/25/19 14:12 Cardiac Monitoring [RC] .As Directed Blood Culture x2 Reflex Set [OM.PC] Urgent Peripheral IV Insertion Adult [OM.PC] Stat EKG 12 Lead [EK] Stat 01/25/19 14:14 EKG Documentation Completion [RC] ASDIRECTED Peripheral IV Care [RC] . DIRECTED 01/25/19 14:25 CULTURE BLOOD [BC] Urgent 01/25/19 14:40 CULTURE BLOOD [BC] Urgent 01/25/19 15:09 CULTURE URINE [RM] Stat 01/25/19 16:58 Vital Signs [RC] PFP
[2019-01-25] MEDS ORDERED: Iopamidol 755 Mg/ML 100 ML Bottle IV SCH (15:00)
[2019-01-25] MEDS ORDERED: Sodium Chloride 0.9% 10 ML Syringe FLUSH ONE (15:00)
[2019-01-25] MEDS ORDERED: Sodium Chloride 0.9% 100 ML IV SCH (15:00)
[2019-01-25] MEDS ORDERED: Iohexol 300 MG/ML 30 ML Bottle PO ONE (15:05)
[2019-01-25] MEDS ORDERED: Lactated Ringers 1,000 ML IV ONE (16:22)
[2019-01-25] MEDS ORDERED: Vancomycin 2 GM in Sodium Chloride 0.9% 500 ML IV ONE ×2 (16:22→17:15)
[2019-01-25] MEDS ORDERED: Piperacillin/Tazobactam 4.5 GM in Sodium Chloride 0.9% 100 ML IV ONE (16:22)
--- NOTE | 2019-01-25 16:23 | CRLCT ---
INDICATION: Tachycardia. Pleuritic chest pain. Left lower chest pain. Elevated D-dimer. Previous leak from esophagojejunostomy. COMPARISON: CT of the abdomen from 01/11/2019 TECHNIQUE: CT examination of the chest was performed with the uneventful intravenous administration of 100 cc of Isovue 370 while 2 mm thick axial sections were obtained through the pulmonary arteries. Please note that all CT scans at this facility use dose modulation, iterative reconstruction, and/or weight-based dosing when appropriate to reduce radiation dose to as low as reasonably achievable. FINDINGS: : There is no sign of pulmonary embolism, with normal enhancement and branching of the pulmonary arteries. The previously seen left pleural effusion has markedly decreased in size and is now tiny. The previously seen atelectasis of the left lower lobe has largely resolved. There is mild residual atelectasis in the posterior-medial left lung base. There is no sign of mediastinal or hilar mass or adenopathy. The heart and great vessels are normal in appearance. There is no sign of supraclavicular or axillary mass or adenopathy. The visualized superior liver, pancreas, kidneys, and adrenals are normal in appearance. Again seen are changes of splenectomy. Again seen are changes of partial gastrectomy with multiple surgical marilee and clips consistent with esophagojejunostomy. The previously seen pigtail drainage catheters have been removed and there is now a series of complex abscesses. There is a thick-walled abscess located under the left hemidiaphragm with an air cavity measuring 5.6 x 4.8 x 1.6 centimeters, with more of an appearance of a chronic abscess. Along the anterior abdominal wall inferior to the thick-walled abscess is a lobulated fluid-filled abscess measuring 6.2 x 3.9 by crater than 8 centimeters, extending beyond the inferior end of the scanned region. This has prominent inflammatory reaction around it and multiple daughter abscesses. Both of these are in locations amenable to percutaneous approach. The gallbladder is prominently distended but is otherwise normal in appearance. There is minimal scoliosis of the thoracic spine convex towards the right. The osseous structures are otherwise normal in appearance for the patient`s age. The findings were discussed with MALINI Murray at 1615 hours on 01/25/2019.. IMPRESSION: No sign of pulmonary embolism. Marked decrease in size of the previously seen pleural effusion, now tiny, with clearing of left lower lobe atelectasis, now mild. Multiple new abscesses have developed in the left upper quadrant of the abdomen as described above. The more inferiorly located abscess has prominent inflammatory reaction around it and is filled with fluid, appearing to be a more active abscess. The more superiorly located abscess located along the inferior left hemidiaphragm has thick ashraf and contains air, and may be a chronic abscess. S/p esophagojejunostomy. Status post splenectomy. Please note that all CT scans at this facility use dose modulation, iterative reconstruction, and/or weight-based dosing when appropriate to reduce radiation dose to as low as reasonably achievable. Dictated by Armando Lombardi MD @ Jan 25 2019 4:03PM Signed by Dr. Armando Lombardi @ Jan 25 2019 4:20PM
--- NOTE | 2019-01-25 16:25 | CRLCT ---
INDICATION: Abdominal pain. Status post splenectomy and gastric bypass with esophagojejunostomy leak TECHNIQUE: CT Abdomen and pelvis with i.v. contrast. Coronal and sagittal reformats were obtained. CONTRAST: 100 mL Isovue 370 COMPARISON: 01/11/2019 FINDINGS: Lower chest: Small left pleural effusion is present and decreased from prior exam with improved aeration of the left lower lobe. Liver: Unremarkable. Spleen: The patient is status post splenectomy with several enhancing nodules seen in the left upper quadrant, likely due to abdominal splenosis. Pancreas: Unremarkable. Gallbladder: Mild gallbladder distention is present measuring 4.7 cm. Kidney: Unremarkable. No kidney or ureteral stones or obstruction seen. Adrenal: Unremarkable. Bowel: The appendix is normal in appearance and size. Adjacent to the multiple staple lines in the left upper quadrant, there is a new gas collection and measures 4.7 x 4.2 cm. There has been interval removal of the left upper quadrant surgical drain. A new multiloculated fluid collection with enhancing margins is noted in anterior left upper quadrant measuring 3.5 x 3 x 5.8 cm, likely due to an abdominal abscess. Vascular: Unremarkable. Lymph: Unremarkable. Peritoneum: Infiltration of the omental fat is seen in the left upper quadrant. No pneumoperitoneum is seen. No significant ascites is noted. Pelvis: The patient is status post prior hysterectomy. Soft tissue: Edema and infiltration of the left anterior abdominal wall is noted. Bone: Unremarkable for age. IMPRESSIONS: 1. Adjacent to the multiple staple lines in the left upper quadrant, there is a new gas collection and measures 4.7 x 4.2 cm. Previous recommendation for contrast swallow study is recommended to exclude anastomotic leak unless already performed. 2. A new multiloculated fluid collection with enhancing margins is noted in anterior left upper quadrant measuring 3.5 x 3 x 5.8 cm, likely due to an abdominal abscess. 3. Small left pleural effusion is present and decreased from prior exam with improved aeration of the left lower lobe. Dictated by Abhijeet Kapoor MD @ 01/25/2019 4:22:21 PM Please note that all CT scans at this facility use dose modulation, iterative reconstruction, and/or weight-based dosing when appropriate to reduce radiation dose to as low as reasonably achievable. Dictated by: Abhijeet Kapoor MD @ 01/25/2019 16:22:45 (Electronically Signed)
[2019-01-25] MEDS ORDERED: Piperacillin/Tazobactam/Dext 4.5 GM in Premix Bag 1 BAG IV ONE (17:00)
[2019-01-25] MEDS ORDERED: Acetaminophen 325 MG Tab PO ONE (17:30)
== END 2019-01-25 18:39 ==
LOC: JP.ED 13:34
DX: R10.9 Unspecified abdominal pain (principal); K21.9 Gastro-esophageal reflux disease without esophagitis; F32.9 Major depressive disorder, single episode, unspecified; E03.9 Hypothyroidism, unspecified; Z79.899 Other long term (current) drug therapy
CPT/HCPCS: 36415; 71275; 74177; 80053; 81001; 83605; 83690; 83735; 84100; 84484; 85025; 85379; 86140; 87040; 87086; 93005; 96361; 96365; 96366; 96368; 96375; 96376; 99285; A9270; J0780; J1170; J2543; J3370; J7030; J7040; J7120; Q9965; Q9967

== ENCOUNTER 2019-04-11 06:25 | Day surgery (SDC) | payer BC ==
[2019-04-11] MEDS ORDERED: fentaNYL 100 MCG/2 ML SDV ONE (07:07)
[2019-04-11] MEDS ORDERED: Propofol 200 MG/20 ML SDV ONE (07:08)
[2019-04-11] MEDS ORDERED: Midazolam 1 MG/ML 2 ML SDV ONE (07:08)
[2019-04-11] MEDS ORDERED: Glycopyrrolate 0.2 MG/ML 2 ML SDV IVPUSH ONE (07:20)
[2019-04-11] MEDS: Lactated Ringers 1,000 ML IV ONE ×2 (07:21→10:59)
[2019-04-11] MEDS ORDERED: Cyanocobalamin (Vitamin B12) 1,000 MCG/ML SDV IM ONE (07:30)
[2019-04-11] MEDS ORDERED: MVI, Adult with Vitamin K 10 ML, Thiamine 200 MG, Chromium/Copper/Mang/Selen/Zn 1 ML in... IV ONE ×4 (07:40)
[2019-04-11] MEDS ORDERED: Dexamethasone 4 MG/ML SDV IVPUSH ONE (08:24)
--- NOTE | 2019-04-16 11:47 | OR ---
DATE OF PROCEDURE: 04/11/2019 PREOPERATIVE DIAGNOSIS: Probable stricture at gastrojejunostomy. 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 OPERATIVE PROCEDURE: Upper gastrointestinal endoscopy with dilation of gastrojejunostomy ([id number]). ANESTHESIA: IV sedation. INDICATION FOR PROCEDURE: The patient is status post revisional procedure with a Rosina-en-Y gastric bypass and presents with some recurrent symptoms of stricturing. Plan is to proceed with upper GI endoscopy with dilation as indicated. Potential risks including bleeding and perforation were discussed, and the patient wishes to proceed. DETAILS OF PROCEDURE: The patient was taken to the operating room and placed in a left lateral decubitus position. IV sedation was administered, after which the upper GI endoscope was passed orally through the length of the esophagus and into the area of the gastric pouch. No retained food or fluid was noted. The patient was noted to have a moderate stricture with the opening roughly the size of a standard pencil with the scope not being able to be pass through that anastomosis. A Bard gastrointestinal catheter was then centered across the anastomosis and inflated to 36-Swedish size. This was held in position for 1 minute, after which the balloon catheter was deflated and withdrawn. Scope was easily then passed through the anastomosis. No complications were noted, and the procedure was then concluded. The patient was taken to the recovery room in satisfactory condition. Davey Amato MD /[id number]
== END 2019-04-11 13:10 | disposition home or self-care (01) ==
LOC: JP.SDS 06:25
PROVIDERS: ATTEND Surgery
DX: K95.89 Other complications of other bariatric procedure (principal); K21.9 Gastro-esophageal reflux disease without esophagitis; K90.9 Intestinal malabsorption, unspecified; F32.9 Major depressive disorder, single episode, unspecified
CPT/HCPCS: 43245; J1100; J2250; J2704; J3010; J3411; J3420; J3490; J7042; J7120

== ENCOUNTER 2019-06-10 07:28 | Day surgery (SDC) | payer BC ==
[2019-06-10] MEDS ORDERED: Lactated Ringers 1,000 ML IV ONE (07:45)
[2019-06-10] MEDS ORDERED: Cyanocobalamin (Vitamin B12) 1,000 MCG/ML SDV IM ONE (07:45)
[2019-06-10] MEDS ORDERED: Glycopyrrolate 0.2 MG/ML 2 ML SDV IVPUSH ONE (07:45)
[2019-06-10] MEDS ORDERED: fentaNYL 100 MCG/2 ML SDV ONE (08:12)
[2019-06-10] MEDS ORDERED: Midazolam 1 MG/ML 2 ML SDV ONE (08:12)
[2019-06-10] MEDS ORDERED: Propofol 200 MG/20 ML SDV ONE (08:12)
[2019-06-10] MEDS ORDERED: MVI, Adult with Vitamin K 10 ML, Thiamine 200 MG, Chromium/Copper/Mang/Selen/Zn 1 ML in... IV ONE ×4 (08:45)
--- NOTE | 2019-06-21 12:20 | OR ---
DATE OF PROCEDURE: 06/10/2019 SURGEON: Davey Amato MD PREOPERATIVE DIAGNOSIS: Probable stricture at gastrojejunostomy. POSTOPERATIVE DIAGNOSIS: Mild stricture at gastrojejunostomy. OPERATIVE PROCEDURE: Upper GI endoscopy with dilation of gastrojejunostomy ([id number]). ANESTHESIA: IV sedation. INDICATIONS FOR PROCEDURE: The patient is status post laparoscopic Rosina-en-Y gastric bypass on 12/18/2018. She presents now with symptoms suggestive of stricturing at her gastrojejunostomy. Plan is to proceed with an upper GI endoscopy with dilation as indicated. Potential risks including bleeding and perforation were discussed, and the patient wishes to proceed. DETAILS OF PROCEDURE: The patient was taken to the operating room and placed in a left lateral decubitus position. IV sedation was administered, after which the upper GI endoscope was passed orally through the length of the esophagus and into the gastric pouch. No retained food or fluid was noted. The patient was noted to have a mild stricture at gastrojejunostomy with 1 cm scope almost being able to be passed through the anastomosis. Bard gastrointestinal catheter was then centered across the anastomosis and inflated to a 36- [place] size. This was held in position for 1 minute, after which balloon catheter was deflated and withdrawn. Scope easily passed through the anastomosis. No complications were noted. Procedure concluded. The patient was taken to the recovery room in satisfactory condition. Davey Amato MD /[id number]
== END 2019-06-10 11:10 | disposition home or self-care (01) ==
LOC: JP.SDS 07:28
PROVIDERS: ATTEND Surgery
DX: K91.89 Other postprocedural complications and disorders of digestive system (principal); Z98.84 Bariatric surgery status
CPT/HCPCS: 43245; J2250; J2704; J3010; J3411; J3420; J3490; J7120